=== PATIENT | male | born 1975 | race African-American/Black ===

== ENCOUNTER 2017-09-09 08:15 | Inpatient (IN) | payer BC, OTHER ==
[2017-09-09 09:29] LABS: Urine Appearance Clear; Urine Blood 1+ (Negative); Urine Color Yellow; Urine Ketones Negative (Negative); Urine Protein 2+(100 mg/dL) (Negative); Urine Specific Gravity 1.023 (1.010-1.030); Urine Urobilinogen Negative (Negative)
[2017-09-09 10:29] LABS: ABS Basophils 0.1 10^3/ul (0-0.2); ABS Eosinophils 0 10^3/ul (0-0.6); ABS Lymphocytes 2.2 10^3/ul (1.0-4.8); ABS Monocytes 0.4 10^3/ul (0-0.8); ABS Neutrophils 2.4 10^3/ul (1.5-7.7); ABS Nucleated RBC 0 10^3/ul; Eosinophil % 0.6 % (0-6); Hematocrit 41 % (42-52); Hemoglobin 13.8 g/dl (14.0-18.0); Lymphocyte % 43.3 % (25-47); Mean Corpuscular HGB Conc 33 g/dl (31-36); Mean Corpuscular Hemoglobin 31 pg (27-31); Mean Corpuscular Volume 93 fL (80-94); Mean Platelet Volume 7 um3 (7.4-10.4); Nucleated Red Blood Cells % 0.1; Platelet Count 190 10^3/ul (150-450); Red Blood Count 4.42 10^6/ul (4.0-5.4); Red Cell Distribution Width 14 % (10.5-15); White Blood Count 5.1 10^3/ul (3.5-10.8)
[2017-09-09] MEDS ORDERED: Pantoprazole IV* 40 MG IV ONE ×2 (10:33→14:23)
[2017-09-09 10:46] LABS: INR 0.78 (0.77-1.02)
[2017-09-09 10:51] LABS: EGFR Non-African American 76.3 (>60)
[2017-09-09] MEDS ORDERED: Iohexol 300* (CONTRAST) 10 ML SDV IV ONE (12:21)
--- NOTE | 2017-09-09 13:31 | RAD ---
INDICATION: Diffuse abdominal pain evaluate for appendicitis and diverticulitis. COMPARISON: Comparison is made with a prior CT of the abdomen and pelvis from November 07, 2014. TECHNIQUE: A CT scan of the abdomen and pelvis was performed with intravenous and oral contrast following intravenous injection of 100 ml of Omnipaque 300 nonionic contrast. Contiguous axial sections were obtained from the lung bases through the symphysis pubis. Images were reconstructed in the coronal and sagittal planes. FINDINGS: The lung bases are clear. No pleural effusion is present. The liver is mildly enlarged and diffusely decreased in attenuation consistent with fatty infiltration. No calcified gallstones are seen. The spleen and pancreas appear to be within normal limits. The adrenal glands appear to be within normal limits. There are multiple focal right renal areas of cortical thinning and scarring. There is also a 4 mm nonobstructing calculus in the upper pole of the right kidney. No hydronephrosis is present. No significant focal renal abnormality is seen. The aorta is normal in caliber and demonstrates homogeneous contrast opacification. No significant enlarged retroperitoneal lymph nodes are seen. The stomach, small and large bowel appear nondistended. There is a metallic foreign body adjacent to the cecum causing artifact limiting the study. The appendix is partially visualized. The visualized portion appears within normal limits. There are no inflammatory changes noted in the right lower quadrant. There is mild sigmoid diverticulosis. There is no evidence for diverticulitis or colitis. No free intraperitoneal air or fluid is seen. No significant focal osseous abnormality is seen. IMPRESSION: 1. NO EVIDENCE FOR ACUTE FINDING OR CAUSE FOR THE PATIENT'S ABDOMINAL PAIN IS SEEN. 2. RIGHT RENAL CORTICAL SCARRING AND NONOBSTRUCTING RIGHT RENAL CALCULUS. 3. MILD HEPATOMEGALY AND HEPATIC STEATOSIS. 4. METALLIC FOREIGN BODY IN THE RIGHT LOWER QUADRANT RECOMMEND CLINICAL CORRELATION.
--- NOTE | 2017-09-09 14:01 | ED ---
Celso Zuniga Julia, scribed for Maxime Coles on 09/09/17 at 1019 . Abdominal Pain/Male - HPI Summary HPI Summary: This patient is a 42 year old M presenting to [facility] with a chief complaint of diffuse intermitting abdominal pain for the past few days. Patient reports hematemesis today. Patient denies bloody or black stools, and diarrhea. The patient rates the pain 9/10 in severity. Symptoms aggravated by increased alcohol consumption this past week. Patient denies medical history. - History of Current Complaint Chief Complaint: EDAbdPain Stated Complaint: ABD PAIN Time Seen by Provider: 09/09/17 10:17 Hx Obtained From: Patient Onset/Duration: Lasting Days Timing: Intermittent Pain Intensity: 9 Pain Scale Used: 0-10 Numeric Location: Diffuse Aggravating Factor(s): Other: - etoh consumption Associated Signs And Symptoms: Positive: Other - hematemesis. Negative: Blood in Stool, Diarrhea - Allergies/Home Medications Allergies/Adverse Reactions: Allergies Allergy/AdvReac Type Severity Reaction Status Date / Time No Known Allergies Allergy Unknown Verified 09/09/17 09:27 Reaction Details hay fever Allergy Intermediate Congestion Uncoded 02/11/15 10:06 Home Medications: Home Medications predniSONE TAB* [Deltasone TAB*] 5 mg PO DAILY 09/09/17 [History Confirmed 09/09] PMH/Surg Hx/FS Hx/Imm Hx Endocrine/Hematology History: Denies: Hx Diabetes, Hx Thyroid Disease Cardiovascular History: Denies: Hx Hypertension, Hx Pacemaker/ICD Respiratory History: Denies: Hx Asthma, Hx Chronic Obstructive Pulmonary Disease (COPD) GI History: Denies: Hx Ulcer Sensory History: Denies: Hx Hearing Aid Neurological History: Reports: Other Neuro Impairments/Disorders - SYNCOPE / CONCUSSION Psychiatric History: Denies: Hx Panic Disorder - Surgical History Surgery Procedure, Year, and Place: LEFT HAND 2003 Infectious Disease History: No Infectious Disease History: Denies: Hx Clostridium Difficile, Hx Hepatitis, Hx Human Immunodeficiency Virus (HIV), Hx of Known/Suspected MRSA, Hx Shingles, Hx Tuberculosis, Traveled Outside the [place] in Last 30 Days - Family History Known Family History: Positive: Other - pancreatic disease - Social History Alcohol Use: Daily Alcohol Amount: most days "to mask the pain" Substance Use Type: Reports: None Smoking Status (MU): Never Smoked Tobacco Review of Systems Gastrointestinal: Negative - bloody or dark stools Positive: Abdominal Pain, Vomiting - with blood. Negative: Diarrhea Positive: no symptoms reported All Other Systems Reviewed And Are Negative: Yes Physical Exam - Summary Physical Exam Summary: Appearance: Well appearing, no pain distress Skin: warm, dry, reflects adequate perfusion Head/face: normal Eyes: EOMI, ELOY ENT: normal Neck: supple, non-tender Respiratory: CTA, breath sounds present Cardiovascular: RRR, pulses symmetrical Abdomen: diffusely tender, soft Bowel: present Musculoskeletal: normal, strength/ROM intact Neuro: normal, sensory motor intact, A&Ox3 Triage Information Reviewed: Yes Vital Signs On Initial Exam: Initial Vitals Temp Pulse Resp BP Pulse Ox 99.0 F 83 18 207/137 98 09/09/17 08:17 09/09/17 08:17 09/09/17 08:17 09/09/17 08:17 09/09/17 08:17 Vital Signs Reviewed: Yes Diagnostics - Vital Signs Vital Signs Temp Pulse Resp BP Pulse Ox 09/09/17 09:30 82 20 188/118 98 09/09/17 09:00 79 18 165/128 94 09/09/17 08:55 95 12 183/134 96 09/09/17 08:48 89 183/134 97 09/09/17 08:17 99.0 F 83 18 207/137 98 - Laboratory Lab Results: Lab Results 09/09/17 Range/Units 09:04 Urine Color Yellow Urine Appearance Clear Urine pH 6.0 (5-9) Ur Specific [place] 1.023 (1.010-1.030) Urine Protein 2+(100 mg/dl) H (Negative) Urine Ketones Negative (Negative) Urine Blood 1+ H (Negative) Urine Nitrate Negative (Negative) Urine Bilirubin Negative (Negative) Urine Urobilinogen Negative (Negative) Ur Leukocyte Esterase Negative (Negative) Urine WBC (Auto) Trace(0-5/hpf) (Absent) Urine RBC (Auto) Trace(0-2/hpf) (Absent) Ur Squamous Epith Cells Present H (Absent) Urine Bacteria Absent (Absent) Hyaline Casts Present H (Absent) Urine Glucose Negative (Negative) Result Diagrams: 09/09/17 09:10 09/09/17 09:10 Lab Statement: Any lab studies that have been ordered have been reviewed, and results considered in the medical decision making process. - CT A/P CT Interpretation Completed By: Radiologist - 1. NO EVIDENCE FOR ACUTE FINDING OR CAUSE FOR THE PATIENT'S ABDOMINAL PAIN IS SEEN. 2. RIGHT RENAL CORTICAL SCARRING AND NONOBSTRUCTING RIGHT RENAL CALCULUS. 3. MILD HEPATOMEGALY AND HEPATIC STEATOSIS. 4. METALLIC FOREIGN BODY IN THE RIGHT LOWER QUADRANT RECOMMEND CLINICAL CORRELATION. ED Physician has reviewed this report. - EKG 1011 Cardiac Rate: NL - 70 EKG Rhythm: Sinus Rhythm EKG Interpretation: no acute changes Abdominal Pain Fem Course/Dx - Course Course Of Treatment: Patient presents with diffuse intermitting abdominal pain for the past few days. Patient reports hematemesis today. Patient denies bloody or black stools, and diarrhea. Bloodwork reveals a postive Troponin and Lactic Acid. CT A/P reveals a metallic foriegn body in the RLQ. Dr. Daniel will admit this patient. - Diagnoses Differential Diagnosis/HQI/PQRI: ACS, Appendicitis, Diverticulitis, Peptic Ulcer Disease Provider Diagnoses: Foreign body of abdominal wall, Troponin level elevated, Abdominal pain - Provider Notifications Discussed Care Of Patient With: Girish Daniel Time Discussed With Above Provider: 13:38 Instructed by Provider To: Admit As Inpatient Discharge - Discharge Plan Condition: Stable Disposition: ADMITTED TO [facility] Referrals: Lizzette Bishop MD [Primary Care Provider] - The documentation as recorded by the Celso aceves Julia accurately reflects the service I personally performed and the decisions made by Sanket madden Emmanuel.
[2017-09-09] MEDS ORDERED: Thiamine IV 100 MG, Folic Acid IV* 1 MG, Multiple Vitamin IV ADULT* 10 ML in D5NS 0.9% ... IV ONE (14:15)
[2017-09-09] MEDS ORDERED: Acetaminophen TAB* 325 MG PO PRN (14:15)
[2017-09-09] MEDS ORDERED: Ondansetron INJ* 2 MG/ML VIAL IV PRN (14:15)
[2017-09-09] MEDS ORDERED: NS 0.9% 1000 ML* 1,000 ML IV SCH (14:15)
[2017-09-09] MEDS ORDERED: Magnesium Sulfate 2 GM IV* 2 GM/50 ML BAG IVPB ONE (14:25)
[2017-09-09 14:50] LABS: Hematocrit 43 % (42-52); Hemoglobin 14.7 g/dl (14.0-18.0)
[2017-09-09] MEDS: Pantoprazole IV* 80 MG in NS 0.9% 250 ML* 250 ML IVPB SCH (15:24)
[2017-09-09] MEDS: hydrALAZINE IV* 20 MG/ML VIAL IV SLOW PU PRN (15:32)
[2017-09-09] MEDS: Sucralfate TAB* 1 GM PO SCH (15:33)
[2017-09-09] MEDS ORDERED: hydrALAZINE IV* 20 MG/ML VIAL IV SLOW PU ONE (17:57)
[2017-09-09] MEDS: amLODIPine TAB* 5 MG PO SCH (18:20)
[2017-09-09 20:01] LABS: Hematocrit 42 % (42-52)
--- NOTE | 2017-09-09 20:20 | HP ---
CC: Dr. Bishop; Dr. Howard; Dr. Key * HISTORY AND PHYSICAL: DATE OF ADMISSION: 09/09/17 PRIMARY CARE PROVIDER: Dr. Bishop. CONSULTING SURGEON: Dr. Key. CONSULTING FLIGHT SERVICE AGENT: Dr. Arcelia Howard. ATTENDING PROVIDER: Dr. Daniel * (DICTATED BY RANDOLPH LEYVA NP) CHIEF COMPLAINT: 1. Vomiting blood x2. 2. Epigastric pain. 3. Lower abdominal pain. HISTORY OF PRESENT ILLNESS: Mr. Mckenna is a 42-year-old male patient. He has a history of EtOH abuse, CKD, syncope in the past, DTs, and seasonal allergies. He says he typically binge drinks. He says he is a known alcoholic. In the last week, he has been drinking a pint to pint and a half of vodka a day; last drink was yesterday. He says he has been having diarrhea intermittently. He said he started having epigastric discomfort. He was concerned today. He vomited twice and he noticed blood coming up with each vomit, small amount. No coffee-ground emesis and he has not had any more active vomiting here in the ED , but he was concerned because of the pain. His family was concerned because of his increased drinking. There were concerned because of obviously the blood. They came into the hospital. He denied any chest pain. He says that he exercise 4 times a week and he does biking, snowboarding, various activities. He lifts weights and he says he never gets chest pain with this. He denies any chest pain currently. He says the pain was initially in his epigastric area, then it kind of settled in both lower quadrants. He describes it as a dull aching cramp. He denies having any fevers, chills. He had 2 episodes of diarrhea yesterday. No tarry stools were noted and he has not had any bowel movements here in the ED. He was concerned because of the bright red blood in his vomit, came into the ED, was evaluated. It was noted that his troponin was mildly elevated at 0.05. He was also found to have in CT scan a metallic foreign body of unclear etiology, and we were asked to evaluate for admission. PAST MEDICAL HISTORY: Significant for: 1. EtOH abuse. 2. History of DTs. 3. CKD. 4. Syncope. 5. Seasonal allergies. PAST SURGICAL HISTORY: Denied. HOME MEDICATIONS: He is currently on a prednisone taper. The only thing he is taking is prednisone 5 mg daily and he is to be done in 2 days according to the patient. He was taking this for a skin reaction. ALLERGIES TO MEDICATIONS: Include none, but he is allergic to NICKEL. FAMILY HISTORY: He says his mother has pancreatic trouble and also has history of drug abuse. Father's history is unknown. SOCIAL HISTORY: The patient does smoke marijuana occasionally. Denies any cocaine, heroin, crack use, or any other illicit drugs. He says he does binge drink. He says he is a known alcoholic and over the last week, he was drinking a pint to pint and a half of alcohol. He works at [employer]. REVIEW OF SYSTEMS: There is no documented fever. Denied having any significant weight change. There is no double vision. Denies having any ear discharge. No rhinorrhea. No sore throat. No thyroid enlargement. Denies any chest pain. There is no orthopnea, no nocturnal dyspnea. There was abdominal pain with nausea and vomiting from my HPI. No dysuria, no frequency. No seizure, no loss of consciousness. No pruritus and no skin ulcerations. Review of 14 systems completed, all others negative. PHYSICAL EXAMINATION GENERAL: At this time, Mr. Mckenna is a 42-year-old male patient, he is sitting in the ED stretcher. He does not appear to be in any acute distress. VITAL SIGNS: Blood pressure 136/94, pulse 73, respirations 20, O2 sat was 97%, his temperature was 99.0. HEENT: Head is atraumatic. Eyes: EOMs are intact. Sclerae anicteric, were not pale. Throat: Oral mucosa appears to be moist. No oropharyngeal erythema. NECK: Supple. LUNGS: Clear to auscultation. No wheezes, rales, or rhonchi. HEART: Sounds S1 and S2. Regular rate and rhythm. No murmurs, rubs, or gallops. ABDOMEN: Soft, flat. There was no guarding or rebound tenderness. He was a little tender in the right lower quadrant. EXTREMITIES: Pulses were 2+ throughout. He is moving all 4 extremities with 5/ 5 strength. NEUROLOGIC: He is awake, alert, oriented x3. Tongue midline. Solar Resource Assessor were equal. No gross focal deficits. SKIN: Intact. DIAGNOSTIC STUDIES/LAB DATA: WBC 5.1, RBC of 4.42, hemoglobin 13.8, hematocrit of 41, and platelet count of 190. INR 0.78, PTT of 33.2. Sodium 140 , potassium is 3.5, chloride of 104, bicarb 27, BUN 15, creatinine 1.06, glucose 94, lactate 2.1, calcium 9.1, mag 1.8. Total bilirubin 0.5, AST 81, ALT 53, alk phos 41. Troponin 0.05. CRP 1.02. Albumin 4.3. Lipase normal. Urine: 1+ blood, present squamous epithelial cells. The patient did have an abdominal and pelvis CT obtained today, which shows no evidence for acute finding or cause of the patient's abdominal pain is seen. Right renal cortical scarring and nonobstructing right renal calculus. Mild hepatomegaly and hepatic steatosis. Metallic foreign body in the right lower quadrant, recommend clinical correlation. He had an EKG obtained today, which does show a normal sinus rhythm. No ST elevations or T-wave inversions were noted. It was reviewed to the previous EKG , it appears to be similar. Old medical records were reviewed. ASSESSMENT AND PLAN: Mr. Mckenna is a 42-year-old male patient coming into the ED today with complaints of epigastric discomfort, abdominal discomfort, and also vomiting blood. On evaluation, found to have a mildly elevated troponin. We were asked to evaluate for admission. He will be admitted under observation status for: 1. Question of gastrointestinal bleed. At this point, I did place a call to Dr. Howard, who is here to help with management of this. I have placed 2 IVs. I am getting a repeat H and H now. I am also getting Hemoccult for stool. I am also starting him on Protonix drip and Carafate and clear liquid diet for now. I suspect, he probably has gastritis from the steroids, ibuprofen use, in addition to this the alcoholism and we will continue to follow. 2. Foreign body. Again, etiology unclear. The patient has never had any surgeries. He has never had any trauma such as a gunshot wound or stabbing or anything like that, that would correlate with this. To his knowledge, he has not swallowed anything. My plan would be to get GI consult for this and also surgical consult. He is tender in the right lower quadrant, but he does not have an acute abdomen. He is not distended, he is not having any guarding. So , we will continue to follow this. 3. Alcoholism and EtOH abuse. Put Social Work consult, [facility] protocol, and I am also checking an alcohol level. 4. Chronic kidney disease. His creatinine appears to be stable, we will monitor. 5. Elevated troponin. Etiology unclear. He is not having any chest pain whatsoever. He exercises pretty routinely, never has exertional chest pain. I am getting an echo. I am going to trend these and place him on telemetry and follow. In the setting of bleeding, I am holding aspirin. I will trend the troponin. If they continue to elevate, we will get Cardiology consult. 6. Elevated liver function tests. Probably secondary to alcoholism, we will follow. 7. History of delirium tremens. Again, [facility] protocol has been initiated. 8. DVT prophylaxis. SCDs have been ordered. 9. Code status. Full code. 10. Fluids, electrolytes, and nutrition. Clear liquid diet. TIME SPENT: On the admission was 70 minutes, greater than half the time was spent [id number] with the patient obtaining my history of physical; the other half time was spent going over the plan of care with the patient and implementing plan of care. I did discuss the plan of care with my attending, Dr. Daniel; he is in agreement. RANDOLPH LEYVA NP [id number]/[facility] #: [id number] JAKUB
--- NOTE | 2017-09-09 20:36 | CONS ---
CONSULTATION REPORT: DATE OF CONSULT: 09/09/17 REFERRING PROVIDER: Jagdeep Beltran NP, Hospitalist Service. REASON FOR CONSULTATION: Foreign body noted on abdominal CT scan. CHIEF COMPLAINT: Nausea and vomiting with blood streaked vomitus. HISTORY OF PRESENT ILLNESS: Mr. James Mckenna is a 42-year-old gentleman who apparently drank alcohol heavily last night, woke up this morning with generalized abdominal pain and dry heaves. He had multiple episodes of retching and towards the end of his retching episode, he had some blood in the vomitus. This has not occurred since that time and he was concerned, subsequently presented to the emergency room. At that time, he was noted to be hemodynamically stable with a systolic blood pressure over 200. He had apparent complaint of generalized abdominal pain. His laboratory values included a normal white blood count of 5000 with hemoglobin of 13.8. His AST, ALT were mildly elevated and lactic acid of 2.1, but a normal lipase. He also had a troponin of 0.05, which was mildly elevated and possibly felt secondary to the hypertension. Serum alcohol level on presentation today was 331. Because of his abdominal discomfort in addition to the workup as above, he underwent a CAT scan of the abdomen and pelvis. I did review these images with our radiologist here. This shows no evidence of acute finding; however, there appears to be a metallic foreign body, which is adjacent to the cecum or within the cecum of 5 to 6 mm in size causing some artifact as well. The nature of this foreign body was not clear. He gives no history of gunshot wound, stab injury or other penetrating injury to his abdomen or chest. He has had no symptoms and his bowels have been working well. He has had no blood per rectum or melena. Of note, he underwent a CAT scan in 2014, which did not show the foreign body. He denies losing any fillings in his teeth or have any problems with choking or coughing. He does admit, however, to drinking quite heavily over the past week. Of note, his serum alcohol level at 9 o'clock this morning was 331. PAST MEDICAL HISTORY: Hypertension, apparently newly diagnosed. PAST SURGICAL HISTORY: None. MEDICATIONS: Prednisone p.r.n. for a skin rash. ALLERGIES: He has no known drug allergies. SOCIAL HISTORY: Socially, he drinks alcohol, fairly regularly. He does not believe that he has a problem with it, however. He does not use tobacco. He works at the [employer]. REVIEW OF SYSTEMS: Review of systems as per above. PHYSICAL EXAM: He is afebrile. Heart rate is 93. Most recent blood pressure 182/121. General, he is a slender male, in no apparent distress. He is quite alert, conversive, very pleasant. Lungs were clear to auscultation with normal respiratory effort. Heart with regular rhythm without murmurs, rubs or gallops. His abdomen is soft, nondistended. There are no prior surgical incisions. There are no hernias. He has normoactive bowel sounds throughout. He has some mild discomfort throughout without rebound, guarding or peritoneal irritation. There is no localized discomfort. Psychiatrically: He appears to be awake, alert and conversive. He has normal judgment and insight. IMPRESSION: 1. Nausea and vomiting with subsequent hematemesis, which seems to have resolved. He was retching heavily prior to the hematemesis and he drank a large amount of alcohol last night. I suspect this is most likely a Shawna-Newton tear and will be self-limiting. He remains hemodynamically stable and a followup hemoglobin is actually slightly higher than his initial presentation. 2. Metallic foreign body noted on the CT scan in the right lower quadrant. This does not appear to be involved in the appendix and there are no other acute findings in the area. It is difficult to tell whether this is intraluminal or could be extraluminal. He gives no history in the last several years of penetrating injury i.e. gunshot wound or stab wound. I suspect this is an intraluminal foreign body that he inadvertently swallowed and is not the cause of any of his presenting symptoms. PLAN: I would recommend observation with serial plain x-ray in the next 24 to 48 hours to document any movement or change in the location of the foreign body. I suspect this will be passed normally and can be followed up as an outpatient. Certainly, if this is something extraluminal, I think this is an incidental finding and still would not recommend any surgical intervention and especially given the fact it is not causing him any symptoms at this point. Thank you for the consultation. We will follow him closely with you. [id number]/[facility] #: [id number] [facility] SYSTEMOswald
[2017-09-10] MEDS: Pantoprazole IV* 80 MG in NS 0.9% 250 ML* 250 ML IVPB SCH ×2 (02:24→13:06)
[2017-09-10 02:54] LABS: Hematocrit 42 % (42-52); Hemoglobin 13.9 g/dl (14.0-18.0)
[2017-09-10 07:04] LABS: ABS Basophils 0.1 10^3/ul (0-0.2); ABS Eosinophils 0.1 10^3/ul (0-0.6); ABS Lymphocytes 1.6 10^3/ul (1.0-4.8); ABS Monocytes 0.5 10^3/ul (0-0.8); ABS Neutrophils 2.6 10^3/ul (1.5-7.7); ABS Nucleated RBC 0 10^3/ul; Eosinophil % 1.1 % (0-6); Hematocrit 43 % (42-52); Hemoglobin 14.4 g/dl (14.0-18.0); Lymphocyte % 33.3 % (25-47); Mean Corpuscular HGB Conc 34 g/dl (31-36); Mean Corpuscular Hemoglobin 31 pg (27-31); Mean Corpuscular Volume 94 fL (80-94); Mean Platelet Volume 7 um3 (7.4-10.4); Nucleated Red Blood Cells % 0.2; Platelet Count 190 10^3/ul (150-450); Red Blood Count 4.59 10^6/ul (4.0-5.4); Red Cell Distribution Width 14 % (10.5-15); White Blood Count 4.8 10^3/ul (3.5-10.8)
[2017-09-10 07:11] LABS: INR 0.85 (0.77-1.02)
[2017-09-10 07:19] LABS: EGFR Non-African American 85.5 (>60)
--- NOTE | 2017-09-10 07:58 | RAD ---
INDICATION: Bloody emesis COMPARISON: CT abdomen pelvis September 09, 2017 TECHNIQUE: 2 views the abdomen were obtained. FINDINGS: Overlying the right of midline pelvis is a 6 mm hyperdense focus that corresponds to a metallic object seen on the previous CT examination that it appears to be outside the bowel. Oral contrast from the previous CT examination fills the bowel. IMPRESSION: NO RADIOGRAPHICALLY APPARENT ACUTE ABNORMALITIES. A METALLIC FOCUS AT THE RIGHT OF MIDLINE PELVIS COULD REPRESENT SURGICAL MATERIAL OR ANOTHER FOREIGN BODY. THESE CORRESPOND TO THE PATIENT'S MEDICAL HISTORY.
[2017-09-10] MEDS: Folic Acid TAB* 1 MG PO SCH (08:20)
[2017-09-10] MEDS: Thiamine TAB* 100 MG TAB PO SCH (08:20)
[2017-09-10] MEDS: Sucralfate TAB* 1 GM PO SCH ×3 (08:20→16:36)
[2017-09-10] MEDS: amLODIPine TAB* 5 MG PO SCH (08:20)
[2017-09-10] MEDS: Multivitamins/Minerals TAB PO SCH (08:20)
--- NOTE | 2017-09-10 08:45 | PN ---
Progress Note - Progress Note Date of Service: 09/10/17 SOAP: Subjective: Doing well overnight Had a BM and passed flatus, no blood, no further N/V Has an appetite Objective: Temp Pulse Resp BP Pulse Ox 98.6 F 64 16 171/98 100 09/10/17 08:05 09/10/17 08:05 09/10/17 08:05 09/10/17 08:05 09/10/17 08:05 PEX: Comfortable Abd is soft and non-distended. Bowel sounds are present throughout. There is no tenderness, rebound or guarding. Laboratory Results - last 24 hr 09/09/17 09/09/17 09/09/17 09:04 09:10 09:10 WBC RBC Hgb Hct MCV MCH MCHC RDW Plt Count MPV Neut % (Auto) Lymph % (Auto) [place] % (Auto) Eos % (Auto) Baso % (Auto) Absolute Neuts (auto) Absolute Lymphs (auto) Absolute Monos (auto) Absolute Eos (auto) Absolute Basos (auto) Absolute Nucleated RBC Nucleated RBC % INR (Anticoag Therapy) 0.78 APTT 33.2 Sodium 140 Potassium 3.5 Chloride 104 Carbon Dioxide 27 Anion Gap 9 BUN 15 Creatinine 1.06 Est GFR ( Amer) 98.1 Est GFR (Non-Af Amer) 76.3 BUN/Creatinine Ratio 14.2 Glucose 94 Lactic Acid Calcium 9.1 Magnesium 1.8 L Total Bilirubin 0.50 Direct Bilirubin Indirect Bilirubin AST 81 H ALT 53 H Alkaline Phosphatase 41 Troponin I 0.05 H* C-Reactive Protein 1.02 Total Protein 7.6 Albumin 4.3 Globulin 3.3 Albumin/Globulin Ratio 1.3 Lipase 65 Urine Color Yellow Urine Appearance Clear Urine pH 6.0 Ur Specific [place] 1.023 Urine Protein 2+(100 mg/dl) H Urine Ketones Negative Urine Blood 1+ H Urine Nitrate Negative Urine Bilirubin Negative Urine Urobilinogen Negative Ur Leukocyte Esterase Negative Urine WBC (Auto) Trace(0-5/hpf) Urine RBC (Auto) Trace(0-2/hpf) Ur Squamous Epith Cells Present H Urine Bacteria Absent Hyaline Casts Present H Urine Glucose Negative Serum Alcohol 331 H 09/09/17 09/09/17 09/09/17 09:10 10:49 14:40 WBC 5.1 RBC 4.42 Hgb 13.8 L 14.7 Hct 41 L 43 MCV 93 MCH 31 MCHC 33 RDW 14 Plt Count 190 MPV 7 L Neut % (Auto) 47.1 Lymph % (Auto) 43.3 [place] % (Auto) 8.0 Eos % (Auto) 0.6 Baso % (Auto) 1.0 Absolute Neuts (auto) 2.4 Absolute Lymphs (auto) 2.2 Absolute Monos (auto) 0.4 Absolute Eos (auto) 0 Absolute Basos (auto) 0.1 Absolute Nucleated RBC 0 Nucleated RBC % 0.1 INR (Anticoag Therapy) APTT Sodium Potassium Chloride Carbon Dioxide Anion Gap BUN Creatinine Est GFR ( Amer) Est GFR (Non-Af Amer) BUN/Creatinine Ratio Glucose Lactic Acid 2.1 H* Calcium Magnesium Total Bilirubin Direct Bilirubin Indirect Bilirubin AST ALT Alkaline Phosphatase Troponin I C-Reactive Protein Total Protein Albumin Globulin Albumin/Globulin Ratio Lipase Urine Color Urine Appearance Urine pH Ur Specific [place] Urine Protein Urine Ketones Urine Blood Urine Nitrate Urine Bilirubin Urine Urobilinogen Ur Leukocyte Esterase Urine WBC (Auto) Urine RBC (Auto) Ur Squamous Epith Cells Urine Bacteria Hyaline Casts Urine Glucose Serum Alcohol 09/09/17 09/09/17 09/09/17 14:40 17:47 19:49 WBC RBC Hgb 14.0 Hct 42 MCV MCH MCHC RDW Plt Count MPV Neut % (Auto) Lymph % (Auto) [place] % (Auto) Eos % (Auto) Baso % (Auto) Absolute Neuts (auto) Absolute Lymphs (auto) Absolute Monos (auto) Absolute Eos (auto) Absolute Basos (auto) Absolute Nucleated RBC Nucleated RBC % INR (Anticoag Therapy) APTT Sodium Potassium Chloride Carbon Dioxide Anion Gap BUN Creatinine Est GFR ( Amer) Est GFR (Non-Af Amer) BUN/Creatinine Ratio Glucose Lactic Acid Calcium Magnesium Total Bilirubin Direct Bilirubin Indirect Bilirubin AST ALT Alkaline Phosphatase Troponin I 0.05 H* 0.06 H* C-Reactive Protein Total Protein Albumin Globulin Albumin/Globulin Ratio Lipase Urine Color Urine Appearance Urine pH Ur Specific [place] Urine Protein Urine Ketones Urine Blood Urine Nitrate Urine Bilirubin Urine Urobilinogen Ur Leukocyte Esterase Urine WBC (Auto) Urine RBC (Auto) Ur Squamous Epith Cells Urine Bacteria Hyaline Casts Urine Glucose Serum Alcohol 09/09/17 09/09/17 09/10/17 19:50 21:53 02:19 WBC RBC Hgb 13.9 L Hct 42 MCV MCH MCHC RDW Plt Count MPV Neut % (Auto) Lymph % (Auto) [place] % (Auto) Eos % (Auto) Baso % (Auto) Absolute Neuts (auto) Absolute Lymphs (auto) Absolute Monos (auto) Absolute Eos (auto) Absolute Basos (auto) Absolute Nucleated RBC Nucleated RBC % INR (Anticoag Therapy) APTT Sodium Potassium Chloride Carbon Dioxide Anion Gap BUN Creatinine Est GFR ( Amer) Est GFR (Non-Af Amer) BUN/Creatinine Ratio Glucose Lactic Acid 2.0 Calcium Magnesium Total Bilirubin Direct Bilirubin Indirect Bilirubin AST ALT Alkaline Phosphatase Troponin I 0.05 H* C-Reactive Protein Total Protein Albumin Globulin Albumin/Globulin Ratio Lipase Urine Color Urine Appearance Urine pH Ur Specific [place] Urine Protein Urine Ketones Urine Blood Urine Nitrate Urine Bilirubin Urine Urobilinogen Ur Leukocyte Esterase Urine WBC (Auto) Urine RBC (Auto) Ur Squamous Epith Cells Urine Bacteria Hyaline Casts Urine Glucose Serum Alcohol 09/10/17 09/10/17 09/10/17 06:24 06:24 06:24 WBC 4.8 RBC 4.59 Hgb 14.4 Hct 43 MCV 94 MCH 31 MCHC 34 RDW 14 Plt Count 190 MPV 7 L Neut % (Auto) 54.1 Lymph % (Auto) 33.3 [place] % (Auto) 9.6 H Eos % (Auto) 1.1 Baso % (Auto) 1.9 Absolute Neuts (auto) 2.6 Absolute Lymphs (auto) 1.6 Absolute Monos (auto) 0.5 Absolute Eos (auto) 0.1 Absolute Basos (auto) 0.1 Absolute Nucleated RBC 0 Nucleated RBC % 0.2 INR (Anticoag Therapy) 0.85 APTT Sodium 133 Potassium 3.7 Chloride 99 L Carbon Dioxide 25 Anion Gap 9 BUN 8 Creatinine 0.96 Est GFR ( Amer) 109.9 Est GFR (Non-Af Amer) 85.5 BUN/Creatinine Ratio 8.3 Glucose 80 Lactic Acid Calcium 8.7 Magnesium Total Bilirubin 1.00 Direct Bilirubin 0.20 H Indirect Bilirubin 0.8 AST 57 H ALT 47 Alkaline Phosphatase 40 Troponin I C-Reactive Protein Total Protein 7.6 Albumin 4.2 Globulin 3.4 Albumin/Globulin Ratio 1.2 Lipase Urine Color Urine Appearance Urine pH Ur Specific [place] Urine Protein Urine Ketones Urine Blood Urine Nitrate Urine Bilirubin Urine Urobilinogen Ur Leukocyte Esterase Urine WBC (Auto) Urine RBC (Auto) Ur Squamous Epith Cells Urine Bacteria Hyaline Casts Urine Glucose Serum Alcohol AXR reviewed this morning--Foreign body metallic object appears to be in same position--? intraluminal v extraluminal?? Assessment: Abd pain resolved-no further N/V, bleeding Abdominal exam benign No change in location of metallic foreign body- While I do not know nature of foreign body I think this is an incidental finding and while this may be outside the bowel, I do not think there is an indication for exploration/ removal. Plan: Continue observation Start diet as tolerated Follow up in office as outpatient.
[2017-09-10] MEDS: hydrALAZINE IV* 20 MG/ML VIAL IV SLOW PU PRN ×2 (10:42→16:38)
[2017-09-10] MEDS: LORazepam TAB(*) 1 MG PO SCH ×3 (12:50→17:24)
--- NOTE | 2017-09-10 15:03 | ECHO ---
Patient: TOM SAMSON [facility] Rec#: [id number] : 1975 Date: 09/10/2017 Age: 42y Height: 172.7 cm / 68.0 in Weight: 74.8 kg / 164.9 lbs Sex: M BSA: 1.9 Room#: 438 Admit Date#: 09/09/2017 Type: Inpatient Referring: Jagdeep Beltran NP Reading: Brittanie Pyle MD Marine Reporter: Bea Alvarado RN RDCS CC: Lizzette Bishop MD Transthoracic Echocardiogram Indication: Elevated troponin level, syncope BP: 167/103 HR: 63 Rhythm: NSR Findings History: ETOH, chronic renal disease Technical Comments: The study quality is good. Completed at 1150. Left Ventricle: The left ventricular chamber size is normal. Mild concentric left ventricular hypertrophy is observed. There is a prominent septal knuckle. measuring 1.4cm. Global left ventricular wall motion and contractility are within normal limits. There is normal left ventricular systolic function. The estimated ejection fraction is 60-65%. There is no consistent Doppler evidence of clinically significant diastolic dysfunction. Left Atrium: The left atrial chamber size is normal. Right Ventricle: The right ventricular chamber size and systolic function are within normal limits. Right Atrium: The right atrial cavity size is normal. Aortic Valve: The aortic valve is trileaflet. Systolic excursion of the aortic valve is normal. There is no evidence of aortic regurgitation. There is no evidence of aortic stenosis. Mitral Valve: The mitral valve leaflets are mildly thickened. There is a trace of mitral regurgitation. There is no evidence of mitral stenosis. Chordal systolic anterior motion is visualized. Tricuspid Valve: The tricuspid valve leaflets are normal. There is trace tricuspid regurgitation. Unable to estimate the right ventricular systolic pressure. There is no tricuspid stenosis. Pulmonic Valve: The pulmonic valve appears normal. There is trace to mild pulmonic regurgitation. There is no pulmonic stenosis. Pericardium: There is no significant pericardial effusion. Aorta: There is no dilatation of the ascending aorta. There is no dilatation of the aortic arch. The aortic root is normal in size. Pulmonary Artery: The main pulmonary artery appears normal. Venous: The inferior vena cava is not visualized. Conclusions Mild concentric left ventricular hypertrophy is observed. Global left ventricular wall motion and contractility are within normal limits. The estimated ejection fraction is 60-65%. The right ventricular chamber size and systolic function are within normal limits. All valves show good excursion and function. There is a trace of mitral regurgitation. There is trace tricuspid regurgitation. Compared with prior echo of 11/08/14, EF previously 55-60%, valve function is stable. Measurements Name Value Normal Range RVDdMajor (2D) 3 cm (2.2 - 4.4) RAd ISD 4CH 4.6 cm (3.4 - 4.9) RA (A4C)W 3.9 cm (2.9 - 4.6) IVSd (2D) 1.1 cm (0.6 - 1) LVPWd (2D) 1.2 cm (0.6 - 1) LVIDd (2D) 4.9 cm (3.6 - 5.4) LVIDs (2D) 2.9 cm - LV FS (2D) 41 % (25 - 45) Aortic Annulus 2 cm (1.4 - 2.6) Ao root diameter (2D) 2.6 cm (2.1 - 3.5) Ascending Ao 3.1 cm (2.1 - 3.4) Aortic arch 2.1 cm (1.8 - 3.4) LA dimension (AP) 2D 3.7 cm (2.3 - 3.8) LAd ISD 4CH 4.9 cm (2.9 - 5.3) LA ISD 4CH W 3.8 cm (2.5 - 4.5) Name Value Normal Range LA ESV SP 4CH (A/L) 59 ml - LA ESV SP 2CH (A/L) 63 ml - LA ESV BP (A/L) 62 ml - LA ESV BP (A/L) index 33 ml/m2 - LA ESV SP 4CH (MOD) 50 ml - LA ESV SP 2CH (MOD) 61 ml - Name Value Normal Range MV E-wave Vmax 0.6 m/sec - MV deceleration time 253 msec - MV A-wave Vmax 0.7 m/sec - MV E:A ratio 0.9 ratio - LV septal e' Vmax 0.07 m/sec - LV lateral e' Vmax 0.13 m/sec - LV E:e' septal ratio 8.6 ratio - LV E:e' lateral ratio 4.6 ratio - Name Value Normal Range AV Vmax 1.8 m/sec - AV VTI 33.1 cm - AV peak gradient 13.5 mmHg - AV mean gradient 7 mmHg - LVOT Vmax 1.6 m/sec - LVOT VTI 30 cm - LVOT peak gradient 10 mmHg - LVOT mean gradient 5.3 mmHg - JANELLE Vmax 1.2 m/sec - Name Value Normal Range PV Vmax 1.1 m/sec -
[2017-09-10] MEDS: Lisinopril TAB* 5 MG PO SCH (15:15)
--- NOTE | 2017-09-10 17:01 | PN ---
Subjective Date of Service: 09/10/17 Interval History: Worsening tachycardia, tremors, hypertension, RESTREPO. WAM to 12, got 4mg, 4mg and 3mg ativan. No vomiting of blood. Was not interested in rehab, seeking to use his girlfriend and family as support. no chest pain or SOB ECHO okay. lisinopril 5mg and amlodipine 5mg added hydralazine prns needed. Objective Active Medications: Acetaminophen (Tylenol Tab*) 650 mg PO Q4H PRN PRN Reason: PAIN Last Admin: 09/09/17 22:16 Dose: 650 mg Amlodipine Besylate (Norvasc Tab*) 10 mg PO DAILY [facility] Last Admin: 09/10/17 08:20 Dose: 10 mg Folic Acid (Folvite Tab*) 1 mg PO DAILY [facility] Last Admin: 09/10/17 08:20 Dose: 1 mg Hydralazine HCl (Apresoline Iv*) 5 mg IV SLOW PU Q6H PRN PRN Reason: BLOOD PRESSURE Last Admin: 09/10/17 16:38 Dose: 5 mg Sodium Chloride (Ns 0.9% 1000 Ml*) 1,000 mls @ 100 mls/hr IV PER RATE [facility] Last Admin: 09/09/17 18:22 Dose: 100 mls/hr Lisinopril (Prinivil Tab*) 5 mg PO DAILY [facility] Last Admin: 09/10/17 15:15 Dose: 5 mg Lorazepam (Ativan Tab(*)) 0 - 6 mg PO .PER [facility] PROTOCOL [facility] PRN Reason: Protocol Last Admin: 09/10/17 15:15 Dose: 4 mg Multivitamins/Minerals (Theragran/Minerals Tab*) 1 tab PO DAILY [facility] Last Admin: 09/10/17 08:20 Dose: 1 tab Ondansetron HCl (Zofran Inj*) 4 mg IV Q6H PRN PRN Reason: NAUSEA Pantoprazole Sodium (Protonix Tab (Nf)) 40 mg PO DAILY [facility] Sucralfate (Carafate*) 1 gm PO AC [facility] Last Admin: 09/10/17 16:36 Dose: 1 gm Thiamine HCl (Vitamin B-1 Tab*) 100 mg PO DAILY [facility] Last Admin: 09/10/17 08:20 Dose: 100 mg Vital Signs - 8 hr 09/10/17 09/10/17 09/10/17 10:35 11:59 12:50 Temperature 98.6 F 98.4 F Pulse Rate 81 110 Respiratory 16 20 20 Rate Blood Pressure 186/90 171/104 (mmHg) O2 Sat by Pulse 100 99 Oximetry 09/10/17 09/10/17 09/10/17 14:00 14:05 15:00 Temperature 98.8 F 98.8 F Pulse Rate 99 108 104 Respiratory 20 21 Rate Blood Pressure 161/102 199/105 180/120 (mmHg) O2 Sat by Pulse 99 99 Oximetry 09/10/17 09/10/17 15:15 16:06 Temperature Pulse Rate Respiratory 21 21 Rate Blood Pressure (mmHg) O2 Sat by Pulse Oximetry Oxygen Devices in Use Now: None Appearance: NAD, slightly tremulous. Eyes: No Scleral Icterus, PERRLA Respiratory: Symmetrical Chest Expansion and Respiratory Effort, Clear to Auscultation Cardiovascular: NL Sounds; No Murmurs; No JVD, No Edema Abdominal: NL Sounds; No Tenderness; No Distention Extremities: No Edema, No Clubbing, Cyanosis Skin: No Rash or Ulcers, No Nodules or Sclerosis Neurological: Alert and Oriented x 3, NL Sensation, NL Gait, - - tremulous with outstretched hands. Nutrition: Taking PO's Result Diagrams: 09/10/17 06:24 09/10/17 06:24 Additional Lab and Data: Laboratory Results - last 24 hr 09/09/17 09/10/17 09/10/17 21:53 02:19 06:24 WBC 4.8 RBC 4.59 Hgb 13.9 L 14.4 Hct 42 43 MCV 94 MCH 31 MCHC 34 RDW 14 Plt Count 190 MPV 7 L Neut % (Auto) 54.1 Lymph % (Auto) 33.3 [place] % (Auto) 9.6 H Eos % (Auto) 1.1 Baso % (Auto) 1.9 Absolute Neuts (auto) 2.6 Absolute Lymphs (auto) 1.6 Absolute Monos (auto) 0.5 Absolute Eos (auto) 0.1 Absolute Basos (auto) 0.1 Absolute Nucleated RBC 0 Nucleated RBC % 0.2 INR (Anticoag Therapy) Sodium Potassium Chloride Carbon Dioxide Anion Gap BUN Creatinine Est GFR ( Amer) Est GFR (Non-Af Amer) BUN/Creatinine Ratio Glucose Calcium Total Bilirubin Direct Bilirubin Indirect Bilirubin AST ALT Alkaline Phosphatase Troponin I 0.05 H* Total Protein Albumin Globulin Albumin/Globulin Ratio 09/10/17 09/10/17 06:24 06:24 WBC RBC Hgb Hct MCV MCH MCHC RDW Plt Count MPV Neut % (Auto) Lymph % (Auto) [place] % (Auto) Eos % (Auto) Baso % (Auto) Absolute Neuts (auto) Absolute Lymphs (auto) Absolute Monos (auto) Absolute Eos (auto) Absolute Basos (auto) Absolute Nucleated RBC Nucleated RBC % INR (Anticoag Therapy) 0.85 Sodium 133 Potassium 3.7 Chloride 99 L Carbon Dioxide 25 Anion Gap 9 BUN 8 Creatinine 0.96 Est GFR ( Amer) 109.9 Est GFR (Non-Af Amer) 85.5 BUN/Creatinine Ratio 8.3 Glucose 80 Calcium 8.7 Total Bilirubin 1.00 Direct Bilirubin 0.20 H Indirect Bilirubin 0.8 AST 57 H ALT 47 Alkaline Phosphatase 40 Troponin I Total Protein 7.6 Albumin 4.2 Globulin 3.4 Albumin/Globulin Ratio 1.2 Microbiology and Other Data: Microbiology 09/10/17 08:30 Stool Stool Occult Blood (HAROON) - Final Assess/Plan/Problems-Billing Assessment: 42 yo male self professed EtOH abuse (1.5 pint vodka daily last week, hx of DTs ) p/w hematemesis likely 2/2 brody newton tear. Hgb stable. bleeding resolved. Alcohol withdrawl and hypertensive. - Patient Problems (1) ETOH abuse Current Visit: No Status: Chronic Priority: Medium Code(s): F10.10 - ALCOHOL ABUSE, UNCOMPLICATED SNOMED Code(s): 45662104 Comment: folate thiamine ativan prn and WAM protocol. consider librium tomorrow. does not want rehab currently but readdress tomorrow. Last drink Thursday PM. Hx of DT (2) Brody-Newton tear Current Visit: Yes Status: Acute Code(s): K22.6 - GASTRO-ESOPHAGEAL LACERATION-HEMORRHAGE SYNDROME SNOMED Code(s): 813158851 Comment: bleeding resolved. switch from protonix gtt to 40mg daily hgb stable. (3) Hypertension Current Visit: Yes Status: Acute Code(s): I10 - ESSENTIAL (PRIMARY) HYPERTENSION SNOMED Code(s): 59674674 Comment: lisinopril 5 amlodipine 5 hydralazine prn. (4) Elevated troponin Current Visit: Yes Status: Acute Code(s): R74.8 - ABNORMAL LEVELS OF OTHER SERUM ENZYMES SNOMED Code(s): 677677813 Comment: peak 0.06. ECHO w/o wma. denies chest pain/sob. Status and Disposition: medicine, change to inpatient given uncontrolled BP, HR and active withdrawals.
[2017-09-11] MEDS: Thiamine TAB* 100 MG TAB PO SCH (08:58)
[2017-09-11] MEDS: Sucralfate TAB* 1 GM PO SCH ×3 (08:58→16:29)
[2017-09-11] MEDS: Folic Acid TAB* 1 MG PO SCH (08:58)
[2017-09-11] MEDS: amLODIPine TAB* 5 MG PO SCH (08:58)
[2017-09-11] MEDS: Lisinopril TAB* 5 MG PO SCH (08:58)
[2017-09-11] MEDS: Multivitamins/Minerals TAB PO SCH (08:59)
[2017-09-11] MEDS ORDERED: chlordiazePOXIDE CAP* 25 MG PO SCH (11:00)
[2017-09-11] MEDS ORDERED: LORazepam INJ* 2 MG/ML 1 ML VIAL IV PUSH PRN (16:03)
[2017-09-11] MEDS: chlordiazePOXIDE CAP* 25 MG PO SCH ×2 (16:28→23:07)
[2017-09-11] MEDS: Pantoprazole TAB (NF) 40 MG TAB PO SCH (18:00)
--- NOTE | 2017-09-11 20:23 | PN ---
Subjective Interval History: HR intermittently into 120-140s, sinus tach, krupa with ambulation complaint of RESTREPO (though better than yesterday), anxious, tearful. perspiration lower face. diarrhea. tremulous. scheduled librium started. felt better after first dose. ativan later (per RN [place] assessment had not been scoring enough). Pt almost fell when getting up to bathroom. when walked in terry HR up to 170- 180s. no blood or N/V Objective Active Medications: Acetaminophen (Tylenol Tab*) 650 mg PO Q4H PRN PRN Reason: PAIN Last Admin: 09/09/17 22:16 Dose: 650 mg Amlodipine Besylate (Norvasc Tab*) 10 mg PO DAILY [facility] Last Admin: 09/11/17 08:58 Dose: 10 mg Chlordiazepoxide (Librium Cap*) 25 mg PO Q6H [facility] Last Admin: 09/11/17 16:28 Dose: 25 mg Folic Acid (Folvite Tab*) 1 mg PO DAILY [facility] Last Admin: 09/11/17 08:58 Dose: 1 mg Hydralazine HCl (Apresoline Iv*) 5 mg IV SLOW PU Q6H PRN PRN Reason: BLOOD PRESSURE Last Admin: 09/10/17 16:38 Dose: 5 mg Sodium Chloride (Ns 0.9% 1000 Ml*) 1,000 mls @ 100 mls/hr IV PER RATE [facility] Last Admin: 09/09/17 18:22 Dose: 100 mls/hr Lisinopril (Prinivil Tab*) 5 mg PO DAILY [facility] Last Admin: 09/11/17 08:58 Dose: 5 mg Lorazepam (Ativan Tab(*)) 0 - 6 mg PO .PER [place] PROTOCOL [facility] PRN Reason: Protocol Last Admin: 09/10/17 17:24 Dose: 3 mg Lorazepam (Ativan Inj*) 2 mg IV PUSH Q6H PRN PRN Reason: ANXIETY Last Admin: 09/11/17 16:29 Dose: 2 mg Multivitamins/Minerals (Theragran/Minerals Tab*) 1 tab PO DAILY [facility] Last Admin: 09/11/17 08:59 Dose: 1 tab Ondansetron HCl (Zofran Inj*) 4 mg IV Q6H PRN PRN Reason: NAUSEA Pantoprazole Sodium (Protonix Tab (Nf)) 40 mg PO DAILY [facility] Last Admin: 09/11/17 18:00 Dose: 40 mg Sucralfate (Carafate*) 1 gm PO AC [facility] Last Admin: 09/11/17 16:29 Dose: 1 gm Thiamine HCl (Vitamin B-1 Tab*) 100 mg PO DAILY [facility] Last Admin: 09/11/17 08:58 Dose: 100 mg Vital Signs - 8 hr 09/11/17 09/11/17 09/11/17 13:00 13:03 15:00 Temperature 98.4 F Pulse Rate 93 Respiratory 16 18 16 Rate Blood Pressure 144/96 (mmHg) O2 Sat by Pulse 98 Oximetry 09/11/17 09/11/17 09/11/17 15:05 16:28 16:29 Temperature 99.0 F Pulse Rate 90 Respiratory 16 18 18 Rate Blood Pressure 140/91 (mmHg) O2 Sat by Pulse 98 Oximetry 09/11/17 09/11/17 09/11/17 17:00 17:16 17:58 Temperature 98.3 F Pulse Rate 93 Respiratory 16 16 16 Rate Blood Pressure 145/112 (mmHg) O2 Sat by Pulse 99 Oximetry Oxygen Devices in Use Now: None Appearance: Anxious, tearful, tremulous Eyes: No Scleral Icterus, PERRLA Ears/Nose/Mouth/Throat: NL Teeth, Lips, Gums Neck: NL Appearance and Movements; NL JVP Respiratory: Symmetrical Chest Expansion and Respiratory Effort, Clear to Auscultation Cardiovascular: NL Sounds; No Murmurs; No JVD, RRR, - - HR 80-90s Abdominal: NL Sounds; No Tenderness; No Distention, No Hepatosplenomegaly Extremities: No Edema, No Clubbing, Cyanosis Skin: No Rash or Ulcers Neurological: Alert and Oriented x 3, NL Sensation, - - intermittently unsteady on feet. Nutrition: Taking PO's Result Diagrams: 09/10/17 06:24 09/10/17 06:24 Microbiology and Other Data: Microbiology 09/10/17 08:30 Stool Stool Occult Blood (HAROON) - Final Assess/Plan/Problems-Billing Assessment: 42 yo male self professed EtOH abuse (1.5 pint vodka daily last week, hx of DTs ) p/w hematemesis likely 2/2 brody newton tear. Hgb stable. bleeding resolved. Alcohol withdrawl and hypertensive. - Patient Problems (1) ETOH abuse Current Visit: No Status: Chronic Priority: Medium Code(s): F10.10 - ALCOHOL ABUSE, UNCOMPLICATED SNOMED Code(s): 14572178 Comment: ativan prn and WAM protocol. started scheduled librium. taper as able. does not want inpatient rehab currently but readdress daily. given list of outpatient resources by CM/SW Last drink Thursday PM. Hx of DT folate thiamine (2) Brody-Newton tear Current Visit: Yes Status: Acute Code(s): K22.6 - GASTRO-ESOPHAGEAL LACERATION-HEMORRHAGE SYNDROME SNOMED Code(s): 275569894 Comment: bleeding resolved. protonix 40mg daily hgb stable. (3) Hypertension Current Visit: Yes Status: Acute Code(s): I10 - ESSENTIAL (PRIMARY) HYPERTENSION SNOMED Code(s): 46832054 Comment: lisinopril 5 amlodipine 5 much improved. was on no meds as outpatient though told high BPs in past. hydralazine prn. (4) Elevated troponin Current Visit: Yes Status: Acute Code(s): R74.8 - ABNORMAL LEVELS OF OTHER SERUM ENZYMES SNOMED Code(s): 998106312 Comment: peak 0.06. ECHO w/o wma. denies chest pain/sob. Status and Disposition: medicin inpatient given active withdrawals and HR to 180s with ambulation.
[2017-09-12] MEDS: chlordiazePOXIDE CAP* 25 MG PO SCH ×2 (05:41→10:24)
[2017-09-12] MEDS: Multivitamins/Minerals TAB PO SCH (09:12)
[2017-09-12] MEDS: Sucralfate TAB* 1 GM PO SCH ×2 (09:12→11:31)
[2017-09-12] MEDS: amLODIPine TAB* 5 MG PO SCH (09:13)
[2017-09-12] MEDS: Pantoprazole TAB (NF) 40 MG TAB PO SCH (09:13)
[2017-09-12] MEDS: Folic Acid TAB* 1 MG PO SCH (09:14)
[2017-09-12] MEDS: Lisinopril TAB* 5 MG PO SCH (09:14)
[2017-09-12] MEDS: Thiamine TAB* 100 MG TAB PO SCH (09:14)
[2017-09-12] MEDS: NS 0.9% 1000 ML* 2,000 ML IV ONE ×2 (10:25→11:32)
[2017-09-12 10:41] LABS: ABS Basophils 0.1 10^3/ul (0-0.2); ABS Eosinophils 0.1 10^3/ul (0-0.6); ABS Lymphocytes 1.3 10^3/ul (1.0-4.8); ABS Monocytes 0.6 10^3/ul (0-0.8); ABS Neutrophils 2.7 10^3/ul (1.5-7.7); ABS Nucleated RBC 0 10^3/ul; Eosinophil % 2.1 % (0-6); Hematocrit 45 % (42-52); Lymphocyte % 26.8 % (25-47); Mean Corpuscular HGB Conc 33 g/dl (31-36); Mean Corpuscular Hemoglobin 31 pg (27-31); Mean Corpuscular Volume 95 fL (80-94); Mean Platelet Volume 7 um3 (7.4-10.4); Nucleated Red Blood Cells % 0; Platelet Count 183 10^3/ul (150-450); Red Blood Count 4.77 10^6/ul (4.0-5.4); Red Cell Distribution Width 13 % (10.5-15); White Blood Count 4.7 10^3/ul (3.5-10.8)
[2017-09-12 15:48] VITALS: BP 154/113
--- NOTE | 2017-09-13 08:03 | DS ---
CC: Dr. Bishop; Dr. Key * DISCHARGE/LEAVING AGAINST MEDICAL ADVICE SUMMARY: DATE OF ADMISSION: DATE OF AMA: 09/12/17 PRIMARY CARE PHYSICIAN: Dr. Bishop. PRIMARY DIAGNOSES: 1. Suspected Shawna-Newton tear. 2. Alcohol abuse with alcohol withdrawal. 3. Tachycardia. SECONDARY DIAGNOSES: Include: 1. Foreign body noted on imaging. 2. Elevated troponin. 3. Hypertension. MEDICATIONS ON DISCHARGE: 1. Librium 25 mg daily for 4 days. 2. Amlodipine 5 mg daily. New Medications: 1. Thiamine 100 mg daily. 2. Carafate 1 g with meals. 3. Protonix 40 mg daily. 4. Folic acid 1 mg daily. 5. Acetaminophen 650 mg every 4 hours as needed for pain. Please do not take this medication if continues to consume alcohol. PERTINENT IMAGING STUDIES: CT abdomen and pelvis, impression: No evidence for acute finding or cause for patient's abdominal pain. Right renal cortical scarring and nonobstructive right renal calculus. Mild hepatomegaly and hepatic steatosis. Metallic foreign body in the right lower quadrant, recommend clinical correlation. CONSULTATIONS OBTAINED DURING HOSPITAL STAY: Include Gastroenterology as well as Surgery. HISTORY OF PRESENT ILLNESS AND HOSPITAL COURSE: This is a 42-year-old man with history of alcohol abuse complicated by delirium tremens, presented to the hospital with hematemesis thought secondary to a Shawna-Newton tear. His hospital stay was complicated by withdrawal requiring Ativan and then placed on Librium prior to his discharge. His hospital stay was additionally complicated by hypertension, systolics in the 190s. The patient was prepared to go home; however, the day prior, he was noted to have tachycardia to rates of 180 when ambulating, resting heart rate was between 70s and 90s. Additionally, on the day of discharge/AMA, the patient's resting heart rates were between 70s and 90s. However, when ambulated slowly around the terry, his heart rate increased to 140 to 150, noted to be sinus tachycardia on telemetry without any clear transition to SVT. he still appears dehydrated. He received 2 L of normal saline bolus prior to his ambulation and a decrease in tachycardia was noted from 180s to 140s to 150s. I recommended that this patient stay hospitalized for continued monitoring, therapy, and IV hydration; however, the patient was anxious to leave the hospital. He is adamant that he is not going to drinking. I indicated my concern that he could suffer a myocardial infarction or other severe morbidity including stroke, loss of consciousness, inability to breathe or . At this point, the patient is no longer scoring on the WAM protocol, has no significant signs of withdrawal other than the tachycardia with ambulation. He understands our conversation as well as the risks and benefits of staying and leaving the hospital. I believe he has capacity to make this decision. However, unfortunately, he is opting to leave the hospital. I discussed the new medications with the patient. He will pick them up at [facility]. He indicates he will return to the hospital with worrisome symptoms which would include palpitations, chest pain, shortness of breath, nausea, vomiting, lightheadedness, loss of consciousness or near loss of consciousness. TIME SPENT: Greater than 60 minutes were spent on discharge of this patient, greater than half was spent [id number] with the patient. [id number]/[facility] #: [id number] JAKUB
== END 2017-09-12 16:16 | disposition left against medical advice (07) | DRG 242 ==
LOC: ED 08:15 → MEDTELE 13:52 → OBSVTOIN 09-10 22:11
PROVIDERS: ADMIT Internal Medicine; ATTEND Internal Medicine
DX: K22.6 Gastro-esophageal laceration-hemorrhage syndrome (principal); F10.239 Alcohol dependence with withdrawal, unspecified; K76.0 Fatty (change of) liver, not elsewhere classified; R00.0 Tachycardia, unspecified; R74.8 Abnormal levels of other serum enzymes; I12.9 Hypertensive chronic kidney disease with stage 1 through stage 4 chronic kidney disease, or unspecified chronic kidney disease; N18.9 Chronic kidney disease, unspecified; F12.90 Cannabis use, unspecified, uncomplicated; R79.89 Other specified abnormal findings of blood chemistry; Y90.8 Blood alcohol level of 240 mg/100 ml or more; N20.0 Calculus of kidney; Z88.8 Allergy status to other drugs, medicaments and biological substances; Z83.79 Family history of other diseases of the digestive system; Z18.10 Retained metal fragments, unspecified
CPT/HCPCS: 36415; 74018; 74177; 80048; 80053; 80076; 80320; 81003; 81015; 82272; 83605; 83690; 83735; 84484; 85014; 85018; 85025; 85610; 85730; 86140; 93005; 93306; 99284; A9270-GY; G0378; G0480; J0360; J2060; J3411; J3475; Q9967

== ENCOUNTER 2017-09-29 17:46 | Emergency (ER) | payer BC ==
--- NOTE | 2017-09-29 19:32 | RAD ---
INDICATION: Fall, altered mental status, head injury. COMPARISON: There are no prior studies available for comparison. TECHNIQUE: Contiguous axial sections of the brain were obtained from the skull base to the vertex without contrast. FINDINGS: The ventricles, cisterns and sulci are within normal limits. There is a small 3 mm area of increased density present in the deep white matter in the posterior right frontal lobe likely secondary to calcification less likely a small area of hemorrhage. This is best seen on image number 10. No other focal abnormality or mass effect are seen. No significant focal osseous abnormality is seen. The visualized portion of the paranasal sinuses and mastoid air cells appear clear. IMPRESSION: SMALL 3 MM AREA OF INCREASED DENSITY IN THE POSTERIOR RIGHT FRONTAL LOBE LIKELY RESENTING A SMALL AREA OF CALCIFICATION LESS LIKELY HEMORRHAGE. MR IMAGING WITHOUT CONTRAST MAY BE HELPFUL IN FURTHER EVALUATION.
--- NOTE | 2017-09-29 19:36 | RAD ---
INDICATION: Right shoulder injury. TECHNIQUE: 4 views of the right shoulder were obtained. FINDINGS: The bones are in normal alignment. There are 2 small calcific densities which project adjacent to the inferior aspect of the glenoid process of the scapula possibly representing old fracture fragments or loose bodies. No acute fracture is seen. There is mild osteoarthritic change in the glenohumeral joint. IMPRESSION: 1. NO EVIDENCE FOR ACUTE FRACTURE. 2. SMALL CALCIFIC DENSITIES ADJACENT TO THE INFERIOR GLENOID PROCESS OF THE SCAPULA POSSIBLY REPRESENTING OLD FRACTURE FRAGMENTS OR LOOSE BODIES.
[2017-09-30 09:02] VITALS: BP 170/87
--- NOTE | 2017-10-02 17:52 | ED ---
Tim Zuniga Angela, scribed for Germain Sullivan MD on 09/30/17 at 0728 . Progress - Progress Note Progress Note: This pt was signed out by Dr. Shelton, pending disposition, awaiting alcohol metabolism. On re-evaluation pt is sleeping comfortably and is stable. On second re-evaluation, pt is awake and is requesting discharge. He called his mother to pick him up. Pt will be discharged to home with his mother. He ambulated out of the emergency room without any difficulty. Pt will be discharged home, in stable condition, with a diagnosis of alcohol intoxication. Condition: Stable Disposition: Home Re-Evaluation - Re-Evaluation First Eval Re-Evaluation Time: 07:17 Change: Improved Comment: Pt is sleeping comfortable and is hemodynamically stable. Second Eval Re-Evaluation Time: 08:38 Change: Improved Comment: Pt is awake and is requesting discharge. Course/Dx - Diagnoses Provider Diagnoses: Alcohol intoxication The documentation as recorded by the Tim aceves Angela accurately reflects the service I personally performed and the decisions made by , Germain Sullivan MD.
--- NOTE | 2017-10-10 14:10 | ED ---
Manohar Zuniga Gabriel, scribed for Jaime Nelson MD on 09/29/17 at 1842 . Adult Trauma - HPI Summary HPI Summary: This patient is a 42 year old M presenting to [facility] s/p fall. Pt was intoxicated at work and his friends called his family didnt want to come in the so police brought him in. The patient rates the pain 6/10 in severity. Symptoms aggravated by movement of the arm. Patient reports RESTREPO, contusion above the right eye, and right shoulder pain. Patient denies LOC. Pt does not drink at work usually. He is clearly drunk in the ED and does not want a work up. - History of Current Complaint Chief Complaint: EDSubstanceAbuse Stated Complaint: 2208 Time Seen by Provider: 09/29/17 18:12 Hx Obtained From: Patient Mechanism of Injury: Fall Loss of Consciousness: no loss of consciousness Onset/Duration: Still Present Pain Intensity: 6 Pain Scale Used: 0-10 Numeric Location: Head, Other - shoulder Associated Signs & Symptoms: Positive: Other: - RESTREPO, contusion above the right eye, and right shoulder pain.. Negative: Loss of Consciousness - Allergy/Home Medications Home Medications: Home Medications Acetaminophen TAB* [Tylenol TAB*] 650 mg PO Q4H PRN 09/29/17 [History Confirmed 09/29/17] Folic Acid TAB* [Folvite TAB*] 1 mg PO DAILY 09/29/17 [History Confirmed ] Pantoprazole TAB (NF) [Protonix TAB (NF)] 40 mg PO DAILY 09/29/17 [History Confirmed 09/29/17] Sucralfate TAB* [Carafate*] 1 gm PO AC 09/29/17 [History Confirmed 09/29/17] Thiamine TAB* [Vitamin B-1 TAB*] 100 mg PO DAILY 09/29/17 [History Confirmed ] amLODIPine TAB* [Norvasc 5 mg TAB*] 5 mg PO DAILY 09/29/17 [History Confirmed ] PMH/Surg Hx/FS Hx/Imm Hx Endocrine/Hematology History: Denies: Hx Blood Disorders, Hx Blood Transfusions, Hx Bone Marrow Disease Cardiovascular History: Denies: Hx Aneurysm, Hx Angina, Hx Angioplasty Respiratory History: Denies: Hx Bronchopulmonary Dysplasia, Hx Chronic Bronchitis History: Denies: Hx Benign Prostatic Hyperplasia Infectious Disease History: No Infectious Disease History: Denies: Traveled Outside the [place] in Last 30 Days - Family History Known Family History: Positive: Hypertension - Social History Occupation: Employed Full-time Alcohol Use: Daily Hx Substance Use: No Substance Use Type: Reports: None Hx Tobacco Use: Yes Smoking Status (MU): Never Smoked Tobacco Type: Smokeless Tobacco Review of Systems Negative: Fever, Chills Negative: Sore Throat Negative: Chest Pain Negative: Shortness Of Breath, Cough Negative: Abdominal Pain, Vomiting, Nausea Negative: dysuria, hematuria Positive: Other - left shoulder pain . Negative: Edema Positive: Other - contusion above the right eye. Negative: Rash Neurological: Negative - dizziness Positive: Headache All Other Systems Reviewed And Are Negative: Yes Physical Exam - Summary Physical Exam Summary: Constitutional: Well-developed, Well-nourished, Alert, Cooperative Skin: Warm, Dry HENT: Normocephalic; No Racoons eyes; No ruiz's sign; No abrasion; No contusion; No hemotympanum; No maxilla facial tenderness or instability; Dentition are smooth; No dental trauma; No trismus. .5cm abrasion over the right eyebrow with hematoma. Eyes: EOM normal, PERRL Neck: Trachea is midline. No stridor; No JVD; No step off; No posterior cervical spine tenderness Cardio: Rhythm regular, rate normal Heart sounds normal; Intact distal pulses; The pedal pulses are 2+ and symmetric. Radial pulses are 2+ and symmetric. Pulmonary/Chest wall: Effort normal; Breath sounds normal; Equal chest rise; No flail segment; No rib tenderness; No sternal tenderness Abd: Soft, Appearance normal. No distension; No tenderness; No palpable pulsatile mass; No Cullens sign; No Yousif-Turners sign Musculoskeletal: Full ROM and no tenderness at hips, ankles, shoulders, elbows and knees; No joint swelling; No vertebral body tenderness; No paraspinal tenderness; No step off or deformity of the spine; Pelvis is stable to lateral compression and rock, TTP to the lateral third of the clavicle Neuro: Alert, Oriented x3, Strength 5/5 all extremities, slurred speech Psych: Mood and affect Normal GCS 15 Triage Information Reviewed: Yes Vital Signs On Initial Exam: Initial Vitals Temp Pulse Resp BP Pulse Ox 98.5 F 112 20 181/126 100 09/29/17 17:49 09/29/17 17:49 09/29/17 17:49 09/29/17 17:49 09/29/17 17:49 Vital Signs Reviewed: Yes Diagnostics - Vital Signs Vital Signs Temp Pulse Resp BP Pulse Ox 09/29/17 17:49 98.5 F 112 20 181/126 100 - Laboratory Lab Results: Lab Results 09/29/17 Range/Units 18:52 Serum Alcohol 461 H* (<10) mg/dL Lab Statement: Any lab studies that have been ordered have been reviewed, and results considered in the medical decision making process. - Radiology Shoulder Xray Radiology Interpretation Completed By: Radiologist - 1. NO EVIDENCE FOR ACUTE FRACTURE. 2. SMALL CALCIFIC DENSITIES ADJACENT TO THE INFERIOR GLENOID PROCESS OF THE SCAPULA POSSIBLY REPRESENTING OLD FRACTURE FRAGMENTS OR LOOSE BODIES. ED physician has reviewed this radiology report. - CT CT brain CT Interpretation Completed By: Radiologist - SMALL 3 MM AREA OF INCREASED DENSITY IN THE POSTERIOR RIGHT FRONTAL LOBE LIKELY RESENTING A SMALL AREA OF CALCIFICATION LESS LIKELY HEMORRHAGE. MR IMAGING WITHOUT CONTRAST MAY BE HELPFUL IN FURTHER EVALUATION. ED physician has reviewed this radiology report. Adult Trauma Course/Dx - Course Assessment/Plan: This patient is a 42 year old M presenting to [facility] s/p fall. Pt was intoxicated at work and his friends called his family didnt want to come in the so police brought him in. The patient rates the pain 6/10 in severity. Symptoms aggravated by movement of the arm. Patient reports RESTREPO, contusion above the right eye, and right shoulder pain. Patient denies LOC. Pt does not drink at work usually. He is clearly drunk in the ED and does not want a work up. CT Brain reveals, per radiologist, SMALL 3 MM AREA OF INCREASED DENSITY IN THE POSTERIOR RIGHT FRONTAL LOBE. LIKELY RESENTING A SMALL AREA OF CALCIFICATION LESS LIKELY HEMORRHAGE. MR IMAGING WITHOUT. CONTRAST MAY BE HELPFUL IN FURTHER EVALUATION. Shoulder XR reveals, per radiologist, 1. NO EVIDENCE FOR ACUTE FRACTURE. 2. SMALL CALCIFIC DENSITIES ADJACENT TO THE INFERIOR GLENOID PROCESS OF THE SCAPULA. POSSIBLY REPRESENTING OLD FRACTURE FRAGMENTS OR LOOSE BODIES. Test results show a serum alcohol of 461. The patient will be signed out to Dr. Shelton awaiting detox. - Diagnoses Provider Diagnoses: Alcohol intoxication Discharge - Sign-Out/Discharge Documenting (check all that apply): Sign-Out Patient Signing out patient TO: Shayy Shelton - Discharge Plan Condition: Fair Disposition: OTHER Discharge Disposition Comment: The pt is signed out to Dr. Shelton. Patient Education Materials: Alcohol Intoxication (ED) Referrals: Lizzette Bishop MD [Primary Care Provider] - 3 Days Additional Instructions: Please follow up with your primary care provider. RETURN TO THE ED FOR ANY WORSENING SYMPTOMS. - Billing Disposition and Condition Condition: FAIR Disposition: OTHER The documentation as recorded by the Manohar aceves Gabriel accurately reflects the service I personally performed and the decisions made by me, Jaime Nelson MD.
== END 2017-09-30 09:08 ==
LOC: ED 17:46 → MERGE 17:46 → ED 09-30 09:08
DX: S00.11XA Contusion of right eyelid and periocular area, initial encounter (principal); R51 Headache; F10.129 Alcohol abuse with intoxication, unspecified; W19.XXXA Unspecified fall, initial encounter; Y92.9 Unspecified place or not applicable; Y90.8 Blood alcohol level of 240 mg/100 ml or more; M25.511 Pain in right shoulder
CPT/HCPCS: 36415; 70450; 80320; 93005; 99284; G0480

== ENCOUNTER 2017-10-30 09:20 | Emergency (ER) | payer BC ==
[2017-10-30 15:41] VITALS: BP 138/105
--- NOTE | 2017-10-30 20:31 | ED ---
Nadia Zuniga Thomas, scribed for Frantz Gonzalez MD on 10/30/17 at 1046 . Substance Abuse/Use - HPI Summary HPI Summary: The patient is a 42 year old male requesting alcohol detox. His last drink was a couple shots of vodka today. He denies recent trauma. He denies taking any other drugs. He is a patient at [facility]. - History Of Current Complaint Chief Complaint: EDSubstanceAbuse Stated Complaint: DETOX Time Seen by Provider: 10/30/17 10:26 Hx Obtained From: Patient Ingestion History: Type/Name Of Drug - ETOH Overdose Characteristics: Oral Timing Of Abuse: Daily Severity Currently: Moderate Aggravating Factor(s): Nothing Alleviating Factor(s): Nothing - Allergies/Home Medications Allergies/Adverse Reactions: Allergies Allergy/AdvReac Type Severity Reaction Status Date / Time No Known Allergies Allergy Unknown Verified 10/30/17 09:23 Reaction Details hay fever Allergy Intermediate Congestion Uncoded 10/30/17 09:23 PMH/Surg Hx/FS Hx/Imm Hx Endocrine/Hematology History: Denies: Hx Blood Disorders, Hx Blood Transfusions, Hx Bone Marrow Disease, Hx Diabetes, Hx Thyroid Disease Cardiovascular History: Denies: Hx Aneurysm, Hx Angina, Hx Angioplasty, Hx Hypertension, Hx Pacemaker /ICD Respiratory History: Denies: Hx Asthma, Hx Bronchopulmonary Dysplasia, Hx Chronic Bronchitis, Hx Chronic Obstructive Pulmonary Disease (COPD) GI History: Denies: Hx Ulcer History: Denies: Hx Benign Prostatic Hyperplasia Sensory History: Denies: Hx Contacts or Glasses, Hx Hearing Aid Opthamlomology History: Denies: Hx Contacts or Glasses Neurological History: Reports: Other Neuro Impairments/Disorders - SYNCOPE / CONCUSSION Psychiatric History: Denies: Hx Panic Disorder - Surgical History Surgery Procedure, Year, and Place: LEFT HAND 2003 Infectious Disease History: No Infectious Disease History: Denies: Hx Clostridium Difficile, Hx Hepatitis, Hx Human Immunodeficiency Virus (HIV), Hx of Known/Suspected MRSA, Hx Shingles, Hx Tuberculosis, Traveled Outside the [place] in Last 30 Days - Family History Known Family History: Positive: Hypertension, Other - pancreatic disease - Social History Alcohol Use: Daily Alcohol Amount: 3 pints of vodka daily Hx Substance Use: No Substance Use Type: Reports: None Hx Tobacco Use: Yes Smoking Status (MU): Never Smoked Tobacco Type: Smokeless Tobacco Review of Systems Negative: Fever Negative: Epistaxis All Other Systems Reviewed And Are Negative: Yes Physical Exam - Summary Physical Exam Summary: Appearance: The patient is well-nourished in no acute distress and in no acute pain. Skin: The skin is warm and dry and skin color reflects adequate perfusion. HEENT: The head is normocephalic and atraumatic. The pupils are equal and reactive. The conjunctivae are clear and without drainage. Nares are patent and without drainage. Mouth reveals moist mucous membranes and the throat is without erythema and exudate. The external ears are intact. The ear canals are patent and without drainage. The tympanic membranes are intact. Neck: the neck is supple with full range of motion and non-tender. There are no carotid bruits. There is no neck vein distension. Respiratory: Chest is non-tender. Lungs are clear to auscultation and breath sounds are symmetrical and equal. Cardiovascular: Heart is regular rate and rhythm. There is no murmur or rub auscultated. There is no peripheral edema and pulses are symmetrical and equal. Abdomen: The abdomen is soft and non-tender. There are normal bowel sounds heard in all four quadrants and there is no organomegaly palpated. Musculoskeletal: There is no back tenderness noted. Extremities are non-tender with full range of motion. There is good capillary refill. There is no peripheral edema or calf tenderness elicited. Neurological: Patient is alert and oriented to person, place and time. The patient has symmetrical motor strength in all four extremities. Cranial nerves are grossly intact. Deep tendon reflexes are symmetrical and equal in all four extremities. Psychiatric: The patient has an appropriate affect and does not exhibit any anxiety or depression. Triage Information Reviewed: Yes Vital Signs On Initial Exam: Initial Vitals Temp Pulse Resp BP Pulse Ox 98 F 87 16 131/91 96 10/30/17 09:23 10/30/17 09:23 10/30/17 09:23 10/30/17 09:23 10/30/17 09:23 Vital Signs Reviewed: Yes Diagnostics - Vital Signs Vital Signs Temp Pulse Resp BP Pulse Ox 10/30/17 10:30 31 129/92 10/30/17 10:00 88 20 114/72 91 10/30/17 09:37 83 125/80 88 10/30/17 09:23 98 F 87 16 131/91 96 - Laboratory Lab Statement: Any lab studies that have been ordered have been reviewed, and results considered in the medical decision making process. Course/Dx - Course Course Of Treatment: Mr. Mckenna presented a bit intoxicated and slept here for awhile. He woke up and was clinically sober and remained cooperative. He didn' t exhibit any withdrawal symptoms or signs and I explained to him that we could only admit him for medical withdrawal. - Diagnoses Provider Diagnoses: Alcohol intoxication Discharge - Sign-Out/Discharge Documenting (check all that apply): Discharge - Discharge Plan Condition: Stable Disposition: HOME Patient Education Materials: Alcohol Intoxication (ED) Referrals: [facility] [Outside] - 11/03/17 Additional Instructions: Follow up at [facility] on 11/03/17. - Billing Disposition and Condition Condition: STABLE Disposition: HOME The documentation as recorded by the Nadia aceves Thomas accurately reflects the service I personally performed and the decisions made by me, Frantz Gonzalez MD.
== END 2017-10-30 15:40 | disposition home or self-care (01) ==
LOC: ED 09:20
DX: F10.129 Alcohol abuse with intoxication, unspecified (principal)
CPT/HCPCS: 99282

== ENCOUNTER 2017-11-04 13:44 | Inpatient (IN) | payer BC ==
[2017-11-04] MEDS ORDERED: LORazepam INJ* 2 MG/ML 1 ML VIAL IV ONE (15:11)
[2017-11-04 16:16] LABS: ABS Basophils 0 10^3/ul (0-0.2); ABS Eosinophils 0 10^3/ul (0-0.6); ABS Monocytes 0.3 10^3/ul (0-0.8); ABS Neutrophils 2.9 10^3/ul (1.5-7.7); ABS Nucleated RBC 0 10^3/ul; Eosinophil % 0.2 % (0-6); Hematocrit 41 % (42-52); Hemoglobin 13.8 g/dl (14.0-18.0); Lymphocyte % 23.7 % (25-47); Mean Corpuscular HGB Conc 34 g/dl (31-36); Mean Corpuscular Hemoglobin 30 pg (27-31); Mean Corpuscular Volume 89 fL (80-94); Nucleated Red Blood Cells % 0; Platelet Count 164 10^3/ul (150-450); Red Blood Count 4.57 10^6/ul (4.0-5.4); Red Cell Distribution Width 13 % (10.5-15); White Blood Count 4.3 10^3/ul (3.5-10.8)
--- NOTE | 2017-11-04 16:19 | RAD ---
INDICATION: Diffuse abdominal pain. COMPARISON: Comparison is made with a prior CT of the abdomen and pelvis from September 09, 2017. TECHNIQUE: A CT scan of the abdomen and pelvis was performed without intravenous or oral contrast. Contiguous axial sections were obtained from the lung bases through the symphysis pubis. Images were reconstructed in the coronal and sagittal planes. FINDINGS: The lung bases are clear. No pleural effusion is present. The liver is mildly enlarged and decreased in attenuation consistent with fatty infiltration. No focal abnormality is seen on this noncontrast study. No calcified gallstones are noted. The spleen and pancreas appear to be within normal limits. The adrenal glands appear within normal limits. The right kidney is slightly small in size with focal areas of cortical thinning most consistent with scarring. There is a small 3 mm calculus in the upper pole of the right kidney. No hydronephrosis is seen. No ureteral or bladder calculi are noted. The aorta is normal in caliber without significant calcific plaque. No significant enlarged retroperitoneal lymph nodes are seen. The stomach, small and large bowel appear nondistended. The appendix is not well visualized. There are few scattered diverticuli within the colon. There is no evidence for diverticulitis. The metallic density noted in the right lower quadrant on the prior study is no longer visualized. No free intraperitoneal air or fluid is seen. No significant focal osseous abnormality is seen. IMPRESSION: 1. NO EVIDENCE FOR ACUTE FINDING OR CAUSE FOR THE PATIENT'S ABDOMINAL PAIN IS SEEN. 2. MILD HEPATOMEGALY AND HEPATIC STEATOSIS. 3. SMALL NONOBSTRUCTING RIGHT RENAL CALCULUS AND RIGHT RENAL SCARRING IS NOTED.
[2017-11-04 16:27] LABS: Urine Appearance Clear; Urine Blood Negative (Negative); Urine Color Yellow; Urine Ketones Negative (Negative); Urine Protein 1+(30 mg/dL) (Negative); Urine Specific Gravity 1.016 (1.010-1.030); Urine Urobilinogen Negative (Negative)
[2017-11-04 16:30] LABS: INR 0.84 (0.77-1.02)
[2017-11-04 16:36] LABS: EGFR Non-African American 66.1 (>60)
[2017-11-04] MEDS ORDERED: Thiamine IV* 100 MG/ML 2 ML VIAL IM ONE (17:45)
[2017-11-04] MEDS ORDERED: Al Hydrox/Mg Hydrox/Simet LIQ* 30 ML UDC PO PRN (17:46)
[2017-11-04] MEDS ORDERED: Ondansetron INJ* 2 MG/ML VIAL IV PRN (17:46)
[2017-11-04] MEDS ORDERED: Magnesium Sulfate 2 GM IV* 2 GM/50 ML BAG IVPB ONE (18:02)
[2017-11-04] MEDS: NS 0.9% 1000 ML* 1,000 ML IV SCH (19:35)
[2017-11-04] MEDS: LORazepam TAB(*) 1 MG PO SCH ×2 (20:03→22:07)
[2017-11-04] MEDS: Docusate CAP* 100 MG PO SCH (20:03)
--- NOTE | 2017-11-04 20:09 | ED ---
Manohar Zuniga Gabriel, scribed for Douglas Vallejo MD on 11/04/17 at 1530 . Substance Abuse/Use - HPI Summary HPI Summary: This patient is a 42 year old presenting to [facility] with a chief complaint of alcohol withdrawal that began today. Patient reports RESTREPO, diaphoresis, chills, body shakes, and depression. Pts last drink was yesterday and he drinks vodka daily. He also requests a MHE. - History Of Current Complaint Chief Complaint: EDGeneral Stated Complaint: ALC. WITHDRAW Hx Obtained From: Patient Onset/Duration of Drug/ETOH Abuse: Years Ingestion History: Type/Name Of Drug - etoh Overdose Characteristics: Oral Timing Of Abuse: Daily Severity Initially: Moderate Severity Currently: Moderate Character: Depressed Associated Signs And Symptoms: Other: - RESTREPO, diaphoresis, chills, body shakes, and depression - Allergies/Home Medications Allergies/Adverse Reactions: Allergies Allergy/AdvReac Type Severity Reaction Status Date / Time No Known Allergies Allergy Unknown Verified 11/04/17 14:32 Reaction Details hay fever Allergy Intermediate Congestion Uncoded 11/04/17 14:32 PMH/Surg Hx/FS Hx/Imm Hx Endocrine/Hematology History: Denies: Hx Blood Disorders, Hx Blood Transfusions, Hx Bone Marrow Disease, Hx Diabetes, Hx Thyroid Disease Cardiovascular History: Denies: Hx Aneurysm, Hx Angina, Hx Angioplasty, Hx Hypertension, Hx Pacemaker /ICD Respiratory History: Denies: Hx Asthma, Hx Bronchopulmonary Dysplasia, Hx Chronic Bronchitis, Hx Chronic Obstructive Pulmonary Disease (COPD) GI History: Reports: Hx Gastroesophageal Reflux Disease Denies: Hx Ulcer History: Denies: Hx Benign Prostatic Hyperplasia Sensory History: Denies: Hx Contacts or Glasses, Hx Hearing Aid Opthamlomology History: Denies: Hx Contacts or Glasses Neurological History: Reports: Other Neuro Impairments/Disorders - SYNCOPE / CONCUSSION Psychiatric History: Reports: Hx Substance Abuse Denies: Hx Panic Disorder - Surgical History Surgery Procedure, Year, and Place: LEFT HAND 2003 Infectious Disease History: No Infectious Disease History: Denies: Hx Clostridium Difficile, Hx Hepatitis, Hx Human Immunodeficiency Virus (HIV), Hx of Known/Suspected MRSA, Hx Shingles, Hx Tuberculosis, Traveled Outside the [place] in Last 30 Days - Family History Known Family History: Positive: Hypertension, Other - pancreatic disease - Social History Alcohol Use: Daily Alcohol Amount: 3 pints of vodka daily Hx Substance Use: No Substance Use Type: Reports: None Hx Tobacco Use: Yes Smoking Status (MU): Never Smoked Tobacco Type: Smokeless Tobacco Review of Systems Positive: Chills, Skin Diaphoresis Positive: Other - tremors Positive: Headache Positive: Depressed All Other Systems Reviewed And Are Negative: Yes Physical Exam - Summary Physical Exam Summary: General: well-appearing, mild pain distress Skin: warm, color reflects adequate perfusion, dry Head: normal Eyes: EOMI, ELOY ENT: normal Neck: supple, nontender Respiratory: CTA, breath sounds present Cardiovascular: RRR Abdomen: mild diffuse ABD tenderness Bowel: present Musculoskeletal: tremors, strength/ROM intact Neurological: normal, sensory/motor intact, A&O x3 Psychological: affect/mood appropriate Triage Information Reviewed: Yes Vital Signs On Initial Exam: Initial Vitals Temp Pulse Resp BP Pulse Ox 98.5 F 82 18 155/110 96 11/04/17 14:17 11/04/17 14:17 11/04/17 14:17 11/04/17 14:17 11/04/17 14:17 Vital Signs Reviewed: Yes Diagnostics - Vital Signs Vital Signs Temp Pulse Resp BP Pulse Ox 11/04/17 14:17 98.5 F 82 18 155/110 96 - Laboratory Lab Results: Lab Results 11/04/17 11/04/17 11/04/17 Range/Units 15:24 15:24 15:24 WBC 4.3 (3.5-10.8) 10^3/ul RBC 4.57 (4.0-5.4) 10^6/ul Hgb 13.8 L (14.0-18.0) g/dl Hct 41 L (42-52) % MCV 89 (80-94) fL MCH 30 (27-31) pg MCHC 34 (31-36) g/dl RDW 13 (10.5-15) % Plt Count 164 (150-450) 10^3/ul MPV 7.0 L (7.4-10.4) um3 Neut % (Auto) 67.4 (38-83) % Lymph % (Auto) 23.7 L (25-47) % Barron % (Auto) 7.9 H (0-7) % Eos % (Auto) 0.2 (0-6) % Baso % (Auto) 0.8 (0-2) % Absolute Neuts (auto) 2.9 (1.5-7.7) 10^3/ul Absolute Lymphs (auto) 1.0 (1.0-4.8) 10^3/ul Absolute Monos (auto) 0.3 (0-0.8) 10^3/ul Absolute Eos (auto) 0 (0-0.6) 10^3/ul Absolute Basos (auto) 0 (0-0.2) 10^3/ul Absolute Nucleated RBC 0 10^3/ul Nucleated RBC % 0 INR (Anticoag Therapy) (0.77-1.02) APTT (26.0-36.3) seconds Sodium 137 L (139-145) mmol/L Potassium 3.6 (3.5-5.0) mmol/L Chloride 99 L (101-111) mmol/L Carbon Dioxide 27 (22-32) mmol/L Anion Gap 11 (2-11) mmol/L BUN 14 (6-24) mg/dL Creatinine 1.20 H (0.67-1.17) mg/dL Est GFR ( Amer) 85.0 (>60) Est GFR (Non-Af Amer) 66.1 (>60) BUN/Creatinine Ratio 11.7 (8-20) Glucose 91 (70-100) mg/dL Lactic Acid 1.3 (0.5-2.0) mmol/L Calcium 9.6 (8.6-10.3) mg/dL Magnesium 1.5 L (1.9-2.7) mg/dL Total Bilirubin 1.00 (0.2-1.0) mg/dL AST 34 (13-39) U/L ALT 21 (7-52) U/L Alkaline Phosphatase 41 (34-104) U/L Total Creatine Kinase 371 H (10-223) U/L CK-MB (CK-2) 2.7 (0.6-6.3) ng/mL Troponin I 0.04 H* (<0.04) ng/mL Total Protein 7.9 (6.4-8.9) g/dL Albumin 4.5 (3.2-5.2) g/dL Globulin 3.4 (2-4) g/dL Albumin/Globulin Ratio 1.3 (1-3) TSH 2.05 (0.34-5.60) mcIU/mL Urine Color Urine Appearance Urine pH (5-9) Ur Specific [place] (1.010-1.030) Urine Protein (Negative) Urine Ketones (Negative) Urine Blood (Negative) Urine Nitrate (Negative) Urine Bilirubin (Negative) Urine Urobilinogen (Negative) Ur Leukocyte Esterase (Negative) Urine WBC (Auto) (Absent) Urine RBC (Auto) (Absent) Ur Squamous Epith Cells (Absent) Urine Bacteria (Absent) Urine Glucose (Negative) Salicylates < 2.50 (<30) mg/dL Urine Opiates Screen (None Detect) Acetaminophen < 15 mcg/mL Ur Barbiturates Screen (None Detect) Ur Phencyclidine Scrn (None Detect) Ur Amphetamines Screen (None Detect) U Benzodiazepines Scrn (None Detect) Urine Cocaine Screen (None Detect) U Cannabinoids Screen (None Detect) Serum Alcohol < 10 (<10) mg/dL 11/04/17 11/04/17 11/04/17 Range/Units 15:24 15:24 15:24 WBC (3.5-10.8) 10^3/ul RBC (4.0-5.4) 10^6/ul Hgb (14.0-18.0) g/dl Hct (42-52) % MCV (80-94) fL MCH (27-31) pg MCHC (31-36) g/dl RDW (10.5-15) % Plt Count (150-450) 10^3/ul MPV (7.4-10.4) um3 Neut % (Auto) (38-83) % Lymph % (Auto) (25-47) % Barron % (Auto) (0-7) % Eos % (Auto) (0-6) % Baso % (Auto) (0-2) % Absolute Neuts (auto) (1.5-7.7) 10^3/ul Absolute Lymphs (auto) (1.0-4.8) 10^3/ul Absolute Monos (auto) (0-0.8) 10^3/ul Absolute Eos (auto) (0-0.6) 10^3/ul Absolute Basos (auto) (0-0.2) 10^3/ul Absolute Nucleated RBC 10^3/ul Nucleated RBC % INR (Anticoag Therapy) 0.84 (0.77-1.02) APTT 30.3 (26.0-36.3) seconds Sodium (139-145) mmol/L Potassium (3.5-5.0) mmol/L Chloride (101-111) mmol/L Carbon Dioxide (22-32) mmol/L Anion Gap (2-11) mmol/L BUN (6-24) mg/dL Creatinine (0.67-1.17) mg/dL Est GFR ( Amer) (>60) Est GFR (Non-Af Amer) (>60) BUN/Creatinine Ratio (8-20) Glucose (70-100) mg/dL Lactic Acid (0.5-2.0) mmol/L Calcium (8.6-10.3) mg/dL Magnesium (1.9-2.7) mg/dL Total Bilirubin (0.2-1.0) mg/dL AST (13-39) U/L ALT (7-52) U/L Alkaline Phosphatase (34-104) U/L Total Creatine Kinase (10-223) U/L CK-MB (CK-2) (0.6-6.3) ng/mL Troponin I (<0.04) ng/mL Total Protein (6.4-8.9) g/dL Albumin (3.2-5.2) g/dL Globulin (2-4) g/dL Albumin/Globulin Ratio (1-3) TSH (0.34-5.60) mcIU/mL Urine Color Yellow Urine Appearance Clear Urine pH 9.0 (5-9) Ur Specific [place] 1.016 (1.010-1.030) Urine Protein 1+(30 mg/dl) A (Negative) Urine Ketones Negative (Negative) Urine Blood Negative (Negative) Urine Nitrate Negative (Negative) Urine Bilirubin Negative (Negative) Urine Urobilinogen Negative (Negative) Ur Leukocyte Esterase Negative (Negative) Urine WBC (Auto) Absent (Absent) Urine RBC (Auto) Trace(0-2/hpf) (Absent) Ur Squamous Epith Cells Present A (Absent) Urine Bacteria Absent (Absent) Urine Glucose Negative (Negative) Salicylates (<30) mg/dL Urine Opiates Screen None detected (None Detect) Acetaminophen mcg/mL Ur Barbiturates Screen None detected (None Detect) Ur Phencyclidine Scrn None detected (None Detect) Ur Amphetamines Screen None detected (None Detect) U Benzodiazepines Scrn None detected (None Detect) Urine Cocaine Screen None detected (None Detect) U Cannabinoids Screen None detected (None Detect) Serum Alcohol (<10) mg/dL Result Diagrams: 11/04/17 15:24 11/04/17 15:24 Lab Statement: Any lab studies that have been ordered have been reviewed, and results considered in the medical decision making process. - CT CT Abdomen/Pelvis CT Interpretation: No Acute Changes - IMPRESSION: 1. NO EVIDENCE FOR ACUTE FINDING OR CAUSE FOR THE PATIENT'S ABDOMINAL PAIN IS SEEN. 2. MILD HEPATOMEGALY AND HEPATIC STEATOSIS. 3. SMALL NONOBSTRUCTING RIGHT RENAL CALCULUS AND RIGHT RENAL SCARRING IS NOTED. Dr. Vallejo has reviewed this report. CT Interpretation Completed By: Radiologist Course/Dx - Course Course Of Treatment: ADMIT HOSPITALIST. CRITICAL CARE TIME LESS THAN 30 MINUTES. - Diagnoses Provider Diagnoses: Alcohol withdrawal, Elevated troponin - Physician Notifications Discussed Care Of Patient With: Nadine Pedroza Time Discussed With Above Provider: 17:15 Instructed by Provider To: Admit As Inpatient Discharge - Sign-Out/Discharge Documenting (check all that apply): Discharge - Discharge Plan Condition: Stable Disposition: ADMITTED TO [facility] - Billing Disposition and Condition Condition: STABLE Disposition: [facility]P-[facility] [place] The documentation as recorded by the Manohar aceves Gabriel accurately reflects the service I personally performed and the decisions made by , Douglas Vallejo MD.
--- NOTE | 2017-11-04 20:43 | HP ---
ATTENDING PROVIDER ADDENDUM NOW INCLUDED ON THIS REPORT CC: Dr. Bishop * ADMISSION HISTORY AND PHYSICAL: DATE OF ADMISSION: 11/04/17 ATTENDING HOSPITALIST: Tonja Holly MD * (DICTATED BY MONIQUE NAVARRETE) PRIMARY CARE PROVIDER: Dr. Bishop. CHIEF COMPLAINT: 1. Alcohol abuse and withdrawal symptoms. 2. Suicidal ideation. HISTORY OF PRESENT ILLNESS: Mr. Mckenna is a 42-year-old gentleman with past medical history significant for alcohol abuse and history of DTs who presented to the emergency room earlier this afternoon voluntarily, requesting mental health evaluation and detoxing. The patient had a longstanding history of chronic alcohol abuse, for which he has been admitted in the past due to withdrawal symptoms. He was most recently admitted about a month ago after he had some episodes of hematemesis with epigastric pain related to alcohol abuse. He was eventually discharged in a stable condition and there was no report of an EGD done; however, the patient has been maintained on PPI therapy since discharge. He presented to the emergency room today stating that for the past 2 weeks, he has been drinking on a daily basis approximately 1 L of vodka every day, most recently last night. He got up this morning and felt very shaky and decided to come to the emergency room requesting detox as well as mental health eval. He has been depressed recently and for the past few days has been having some suicidal ideation. He denies any homicidal ideation or any intent to hurt others. He has never had any mental health evaluation done in the past; however, he does note his longstanding history of depression and anxiety. He denied any chest pain, palpitations, shortness of breath, headache, dizziness, or blurred vision. He does admit to associated nausea, but denies any vomiting, hematemesis, melena, or any other associated problems. He was recently started on Norvasc for control of his blood pressure in addition to PPI and Carafate given his history of hematemesis. During his ED visit, he had laboratory workup that revealed hemodynamic stability and we were asked to see the patient for evaluation and to discuss admission for detoxing as well as mental health evaluation. PAST MEDICAL HISTORY: As mentioned above, significant for: 1. EtOH abuse with prior admission with withdrawal symptoms. 2. He also has a history of DTs. 3. Hypertension. 4. Chronic kidney disease. 5. GERD. 6. Syncope. 7. Seasonal allergies. PAST SURGICAL HISTORY: He denied any surgeries in the past. CURRENT MEDICATIONS: His medications at home include: 1. Tylenol 650 mg q.4 to 6 hours as needed for pain. 2. Norvasc 5 mg p.o. daily. 3. Folic acid 1 mg p.o. daily. 4. Protonix 40 mg p.o. daily. 5. Carafate 1 g p.o. 4 times a day. 6. Thiamine. 7. Vitamin B12 100 mg p.o. daily. ALLERGIES: He has no known drug allergies. He reports allergies to NICKEL. FAMILY HISTORY: Significant for mother with history of pancreatic problems related to alcoholism and drug abuse. Also, father's history is unknown since the patient has not seen his father in years. SOCIAL HISTORY: The patient denies cigarette smoking. He used to smoke marijuana in the past, but quit about 2 months ago. He admits to drinking 1 L of vodka daily for the past 2 weeks. He has a history of binge drinking in the past. He works at the [employer] at [employer]. REVIEW OF SYSTEMS: See HPI, otherwise review of 14 systems completed and all other negative. PHYSICAL EXAMINATION GENERAL: He is a pleasant healthy appearing middle-aged gentleman, in no acute distress or discomfort at the time of admission. VITAL SIGNS: Revealed temperature of 98.5, pulse of 70, blood pressure of 172/ 101, respirations of 17, and O2 sat of 99% on room air. HEENT: Head is normocephalic, atraumatic. Sclerae anicteric. PERRLA. EOMs intact. Oropharynx is pink and moist. NECK: Supple. Trachea midline. No cervical adenopathy or thyromegaly. LUNGS: Clear to auscultation bilaterally. There are no rales, wheezes, or rhonchi. HEART: Regular rate and rhythm. Normal S1 and S2 without rubs, murmurs, or gallops. BACK: With normal curvature. No CVA tenderness. ABDOMEN: Soft, nontender, and nondistended. No hernias, masses, or hepatosplenomegaly. There is no guarding, rigidity, or rebound tenderness. Bowel sounds were normoactive in all quadrants. RECTAL: Exam deferred at this time. EXTREMITIES: Without cyanosis, clubbing, or edema. NEUROLOGIC: Grossly intact. Sensation and gross motor was essentially normal. There was no evidence of active tremors or shakes on exam. LABORATORY WORKUP: CBC revealed white count of 4000, hemoglobin 13.8, hematocrit 41, and platelets of 164,000. Chemistry panel with sodium of 137, potassium 3.6, chloride 99, CO2 of 27, BUN 14, and creatinine of 1.2. His lactic acid is 1.3. Magnesium 1.5. Troponin 0.04, appears to be chronic since last visit; however, we will recheck trending troponin during his admission. ACCESSORY DIAGNOSTIC DATA: The patient had a CT scan of the abdomen and pelvis that revealed no evidence for acute finding except for mild hepatosplenomegaly unchanged and a small nonobstructing right renal calculus. IMPRESSION: A 42-year-old gentleman with past medical history significant for alcohol abuse and withdrawal symptoms as well as hypertension and chronic kidney disease who appears to the emergency room this afternoon with complaints of suicidal ideation and request for detoxing with alcohol binge drinking for the past 2 weeks. PLAN AND RECOMMENDATIONS: 1. Alcohol abuse and withdrawal symptoms. The patient will be admitted for observation in the telemetry unit. WAM protocol was ordered and in effect. He appears to be stable at this time and we will monitor him closely for withdrawal symptoms. 2. Anxiety, depression, and suicidal ideation. One-on-one observation orders were discussed and placed. The patient appears to be stable at this time; however, he expressed some suicidal ideation earlier today and for the past few days. Psych eval was requested and we will await recommendation in that regard. 3. Hypertension. We will continue his Norvasc as prescribed. 4. Gastroesophageal reflux disease and history of hematemesis. We will continue his PPI and monitor his H and H closely. He denied any history of hematemesis since admission last month. 5. Nutrition status. We will continue his folic acid and thiamine as per protocol. 6. Hypomagnesemia. We will replace his magnesium. 7. DVT prophylaxis. The patient is a low risk scoring 1 on the DVT scale. We will encourage early ambulation. 8. Code status. The patient is a full code. MONIQUE NAVARRETE ADDENDUM: PRIMARY CARE PROVIDER: Dr. Bishop. HISTORY OF PRESENT ILLNESS: Mr. Mckenna is a 42-year-old male with a past medical history of alcohol abuse, chronic kidney disease that presented to the emergency room with complaints of withdrawal with shaking, weakness and headache. His last drink was yesterday and while being evaluated in the emergency room, the patient also complained of suicidal ideation. He will be admitted to the telemetry floor for further evaluation as he also has borderline elevated troponin. This is likely associated with his CKD but needs to be monitored nonetheless. We are going to treat his withdrawal and when he is medically stable, he will possibly need transfer to the mental health unit for further treatment. In the meantime, he will have one-to-one observation. This case was reviewed and discussed with MONIQUE Navarrete. I am in agreement with his management. TONJA Holly MD [id number]/CPS #: [id number]/CPS #: [id number] JAKUB
--- NOTE | 2017-11-04 21:17 | HP ---
CC: Dr. Bishop ADDENDUM: HISTORY AND PHYSICAL: PRIMARY CARE PROVIDER: Dr. Bishop. HISTORY OF PRESENT ILLNESS: Mr. Mckenna is a 42-year-old male with a past medical history of alcohol abuse, chronic kidney disease that presented to the emergency room with complaints of withdrawal with shaking, weakness and headache. His last drink was yesterday and while being evaluated in the emergency room, the patient also complained of suicidal ideation. He will be admitted to the telemetry floor for further evaluation as he also has borderline elevated troponin. This is likely associated with his CKD but needs to be monitored nonetheless. We are going to treat his withdrawal and when he is medically stable, he will possibly need transfer to the mental health unit for further treatment. In the meantime, he will have one-to-one observation. This case was reviewed and discussed with Rolanda Moreno, physician server service assistant. I am in agreement with his management. [id number]/CPS #: [id number] MTDD
[2017-11-05] MEDS: NS 0.9% 1000 ML* 1,000 ML IV SCH ×3 (04:51→21:37)
[2017-11-05] MEDS: Sucralfate TAB* 1 GM PO SCH ×3 (08:29→16:35)
[2017-11-05] MEDS: Docusate CAP* 100 MG PO SCH ×2 (08:29→19:54)
[2017-11-05] MEDS: Thiamine TAB* 100 MG TAB PO SCH (08:29)
[2017-11-05] MEDS: Multivitamins/Minerals TAB PO SCH (08:29)
[2017-11-05] MEDS: Folic Acid TAB* 1 MG PO SCH (08:30)
[2017-11-05] MEDS: Omeprazole CAP* 20 MG PO SCH (08:30)
[2017-11-05] MEDS: amLODIPine TAB* 5 MG PO SCH (08:30)
[2017-11-05] MEDS: Acetaminophen TAB* 325 MG PO PRN ×2 (09:36→20:18)
[2017-11-05] MEDS: LORazepam TAB(*) 1 MG PO SCH ×4 (10:21→20:19)
--- NOTE | 2017-11-05 11:16 | PN ---
Subjective Date of Service: 11/05/17 Interval History: Patient seen and examined. Still scoring on WAM, 1:1 at bedside. Patient states he does not want to hurt himself today. His plan was to drink antifreeze because he is depressed about his alcoholism. C/O headache and tremors, no chest pain, no SOB, not further complaints. Objective Active Medications: Acetaminophen (Tylenol Tab*) 650 mg PO Q4H PRN PRN Reason: PAIN Last Admin: 11/05/17 09:36 Dose: 650 mg Al Hydrox/Mg Hydrox/Simethicone (Maalox Plus*) 30 ml PO Q6H PRN PRN Reason: INDIGESTION Amlodipine Besylate (Norvasc Tab*) 5 mg PO DAILY [facility] Last Admin: 11/05/17 08:30 Dose: 5 mg Docusate Sodium (Colace Cap*) 100 mg PO BID [facility] Last Admin: 11/05/17 08:29 Dose: 100 mg Folic Acid (Folvite Tab*) 1 mg PO DAILY [facility] Last Admin: 11/05/17 08:30 Dose: 1 mg Sodium Chloride (Ns 0.9% 1000 Ml*) 1,000 mls @ 125 mls/hr IV PER RATE [facility] Last Admin: 11/05/17 04:51 Dose: 125 mls/hr Lorazepam (Ativan Tab(*)) 0 - 6 mg PO .PER [facility] PROTOCOL SOURAV PRN Reason: Protocol Last Admin: 11/05/17 10:21 Dose: 2 mg Multivitamins/Minerals (Theragran/Minerals Tab*) 1 tab PO DAILY [facility] Last Admin: 11/05/17 08:29 Dose: 1 tab Omeprazole (Prilosec Cap*) 20 mg PO DAILY@0730 [facility] Last Admin: 11/05/17 08:30 Dose: 20 mg Ondansetron HCl (Zofran Inj*) 4 mg IV Q4H PRN PRN Reason: NAUSEA/VOMITING Sucralfate (Carafate*) 1 gm PO AC [facility] Last Admin: 11/05/17 08:29 Dose: 1 gm Thiamine HCl (Vitamin B-1 Tab*) 100 mg PO DAILY [facility] Last Admin: 11/05/17 08:29 Dose: 100 mg Vital Signs - 8 hr 04/19/18 04/19/18 04/19/18 04:24 06:56 08:31 Temperature 98.7 F 98.2 F Pulse Rate 64 77 76 Respiratory 16 16 14 Rate Blood Pressure 142/104 153/99 150/97 (mmHg) O2 Sat by Pulse 99 97 97 Oximetry 18 11/05/17 10:16 10:21 Temperature 98.6 F Pulse Rate 77 Respiratory 16 18 Rate Blood Pressure 158/97 (mmHg) O2 Sat by Pulse 99 Oximetry Oxygen Devices in Use Now: None Appearance: Alert, mildy tremulous, NAD Eyes: No Scleral Icterus, PERRLA Ears/Nose/Mouth/Throat: NL Teeth, Lips, Gums, Mucous Membranes Moist Neck: Trachea Midline Respiratory: Symmetrical Chest Expansion and Respiratory Effort, Clear to Auscultation Cardiovascular: NL Sounds; No Murmurs; No JVD, RRR, No Edema Abdominal: NL Sounds; No Tenderness; No Distention Neurological: Alert and Oriented x 3 Nutrition: Taking PO's Result Diagrams: 11/04/17 15:24 11/04/17 15:24 Additional Lab and Data: Lab Results 11/04/17 11/04/17 11/04/17 Range/Units 15:24 15:24 15:24 WBC 4.3 (3.5-10.8) 10^3/ul RBC 4.57 (4.0-5.4) 10^6/ul Hgb 13.8 L (14.0-18.0) g/dl Hct 41 L (42-52) % MCV 89 (80-94) fL MCH 30 (27-31) pg MCHC 34 (31-36) g/dl RDW 13 (10.5-15) % Plt Count 164 (150-450) 10^3/ul MPV 7.0 L (7.4-10.4) um3 Neut % (Auto) 67.4 (38-83) % Lymph % (Auto) 23.7 L (25-47) % [place] % (Auto) 7.9 H (0-7) % Eos % (Auto) 0.2 (0-6) % Baso % (Auto) 0.8 (0-2) % Absolute Neuts (auto) 2.9 (1.5-7.7) 10^3/ul Absolute Lymphs (auto) 1.0 (1.0-4.8) 10^3/ul Absolute Monos (auto) 0.3 (0-0.8) 10^3/ul Absolute Eos (auto) 0 (0-0.6) 10^3/ul Absolute Basos (auto) 0 (0-0.2) 10^3/ul Absolute Nucleated RBC 0 10^3/ul Nucleated RBC % 0 INR (Anticoag Therapy) (0.77-1.02) APTT (26.0-36.3) seconds Sodium 137 L (139-145) mmol/L Potassium 3.6 (3.5-5.0) mmol/L Chloride 99 L (101-111) mmol/L Carbon Dioxide 27 (22-32) mmol/L Anion Gap 11 (2-11) mmol/L BUN 14 (6-24) mg/dL Creatinine 1.20 H (0.67-1.17) mg/dL Est GFR ( Amer) 85.0 (>60) Est GFR (Non-Af Amer) 66.1 (>60) BUN/Creatinine Ratio 11.7 (8-20) Glucose 91 (70-100) mg/dL Lactic Acid 1.3 (0.5-2.0) mmol/L Calcium 9.6 (8.6-10.3) mg/dL Magnesium 1.5 L (1.9-2.7) mg/dL Total Bilirubin 1.00 (0.2-1.0) mg/dL AST 34 (13-39) U/L ALT 21 (7-52) U/L Alkaline Phosphatase 41 (34-104) U/L Total Creatine Kinase 371 H (10-223) U/L CK-MB (CK-2) 2.7 (0.6-6.3) ng/mL Troponin I 0.04 H* (<0.04) ng/mL Total Protein 7.9 (6.4-8.9) g/dL Albumin 4.5 (3.2-5.2) g/dL Globulin 3.4 (2-4) g/dL Albumin/Globulin Ratio 1.3 (1-3) TSH 2.05 (0.34-5.60) mcIU/mL Urine Color Urine Appearance Urine pH (5-9) Ur Specific [place] (1.010-1.030) Urine Protein (Negative) Urine Ketones (Negative) Urine Blood (Negative) Urine Nitrate (Negative) Urine Bilirubin (Negative) Urine Urobilinogen (Negative) Ur Leukocyte Esterase (Negative) Urine WBC (Auto) (Absent) Urine RBC (Auto) (Absent) Ur Squamous Epith Cells (Absent) Urine Bacteria (Absent) Urine Glucose (Negative) Salicylates < 2.50 (<30) mg/dL Urine Opiates Screen (None Detect) Acetaminophen < 15 mcg/mL Ur Barbiturates Screen (None Detect) Ur Phencyclidine Scrn (None Detect) Ur Amphetamines Screen (None Detect) U Benzodiazepines Scrn (None Detect) Urine Cocaine Screen (None Detect) U Cannabinoids Screen (None Detect) Serum Alcohol < 10 (<10) mg/dL 11/04/17 11/04/17 11/04/17 Range/Units 15:24 15:24 15:24 WBC (3.5-10.8) 10^3/ul RBC (4.0-5.4) 10^6/ul Hgb (14.0-18.0) g/dl Hct (42-52) % MCV (80-94) fL MCH (27-31) pg MCHC (31-36) g/dl RDW (10.5-15) % Plt Count (150-450) 10^3/ul MPV (7.4-10.4) um3 Neut % (Auto) (38-83) % Lymph % (Auto) (25-47) % [place] % (Auto) (0-7) % Eos % (Auto) (0-6) % Baso % (Auto) (0-2) % Absolute Neuts (auto) (1.5-7.7) 10^3/ul Absolute Lymphs (auto) (1.0-4.8) 10^3/ul Absolute Monos (auto) (0-0.8) 10^3/ul Absolute Eos (auto) (0-0.6) 10^3/ul Absolute Basos (auto) (0-0.2) 10^3/ul Absolute Nucleated RBC 10^3/ul Nucleated RBC % INR (Anticoag Therapy) 0.84 (0.77-1.02) APTT 30.3 (26.0-36.3) seconds Sodium (139-145) mmol/L Potassium (3.5-5.0) mmol/L Chloride (101-111) mmol/L Carbon Dioxide (22-32) mmol/L Anion Gap (2-11) mmol/L BUN (6-24) mg/dL Creatinine (0.67-1.17) mg/dL Est GFR ( Amer) (>60) Est GFR (Non-Af Amer) (>60) BUN/Creatinine Ratio (8-20) Glucose (70-100) mg/dL Lactic Acid (0.5-2.0) mmol/L Calcium (8.6-10.3) mg/dL Magnesium (1.9-2.7) mg/dL Total Bilirubin (0.2-1.0) mg/dL AST (13-39) U/L ALT (7-52) U/L Alkaline Phosphatase (34-104) U/L Total Creatine Kinase (10-223) U/L CK-MB (CK-2) (0.6-6.3) ng/mL Troponin I (<0.04) ng/mL Total Protein (6.4-8.9) g/dL Albumin (3.2-5.2) g/dL Globulin (2-4) g/dL Albumin/Globulin Ratio (1-3) TSH (0.34-5.60) mcIU/mL Urine Color Yellow Urine Appearance Clear Urine pH 9.0 (5-9) Ur Specific [place] 1.016 (1.010-1.030) Urine Protein 1+(30 mg/dl) A (Negative) Urine Ketones Negative (Negative) Urine Blood Negative (Negative) Urine Nitrate Negative (Negative) Urine Bilirubin Negative (Negative) Urine Urobilinogen Negative (Negative) Ur Leukocyte Esterase Negative (Negative) Urine WBC (Auto) Absent (Absent) Urine RBC (Auto) Trace(0-2/hpf) (Absent) Ur Squamous Epith Cells Present A (Absent) Urine Bacteria Absent (Absent) Urine Glucose Negative (Negative) Salicylates (<30) mg/dL Urine Opiates Screen None detected (None Detect) Acetaminophen mcg/mL Ur Barbiturates Screen None detected (None Detect) Ur Phencyclidine Scrn None detected (None Detect) Ur Amphetamines Screen None detected (None Detect) U Benzodiazepines Scrn None detected (None Detect) Urine Cocaine Screen None detected (None Detect) U Cannabinoids Screen None detected (None Detect) Serum Alcohol (<10) mg/dL Assess/Plan/Problems-Billing Assessment: - Patient Problems (1) ETOH abuse Code(s): F10.10 - ALCOHOL ABUSE, UNCOMPLICATED SNOMED Code(s): 57381979 Comment: - Last time detoxed in - Folate, thiamine and MVI supplementation - [facility] protocol - BP elevated but stable, no tachycardia (2) Depression with suicidal ideation Code(s): F32.9 - MAJOR DEPRESSIVE DISORDER, SINGLE EPISODE, UNSPECIFIED; R45.851 - SUICIDAL IDEATIONS SNOMED Code(s): 93862792 Comment: - Pyschiatry consulted - Contracted for safety today - Continue 1:1 until seen by psych (3) Elevated troponin Code(s): R74.8 - ABNORMAL LEVELS OF OTHER SERUM ENZYMES SNOMED Code(s): 508885957 Comment: - 0.04/0.03/0.03 - Stable, likely r/t renal disease (4) Hypertension Code(s): I10 - ESSENTIAL (PRIMARY) HYPERTENSION SNOMED Code(s): 34940725 Comment: - Continue amlodipine - Start clonidine BID (5) CKD (chronic kidney disease) Code(s): N18.9 - CHRONIC KIDNEY DISEASE, UNSPECIFIED SNOMED Code(s): 614446047 Comment: - Monitor renal function - continue IVF at maintenance (6) DVT prophylaxis Code(s): PXR3139 - SNOMED Code(s): 091363787 Comment: - Ambulatory Status and Disposition: Remain inpatient.
[2017-11-05] MEDS: cloNIDine TAB* 0.1 MG PO SCH ×2 (11:57→19:54)
[2017-11-05] MEDS: Sertraline* 50 MG TAB PO SCH (16:09)
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
[2017-11-06] MEDS: NS 0.9% 1000 ML* 1,000 ML IV SCH ×3 (06:04→22:07)
[2017-11-06] MEDS: Omeprazole CAP* 20 MG PO SCH (08:02)
[2017-11-06] MEDS: Folic Acid TAB* 1 MG PO SCH (08:03)
[2017-11-06] MEDS: Sertraline* 50 MG TAB PO SCH (08:03)
[2017-11-06] MEDS: Docusate CAP* 100 MG PO SCH ×2 (08:03→20:45)
[2017-11-06] MEDS: Thiamine TAB* 100 MG TAB PO SCH (08:03)
[2017-11-06] MEDS: Multivitamins/Minerals TAB PO SCH (08:03)
[2017-11-06] MEDS: Sucralfate TAB* 1 GM PO SCH ×3 (08:03→17:16)
[2017-11-06] MEDS: amLODIPine TAB* 5 MG PO SCH (08:03)
[2017-11-06] MEDS: cloNIDine TAB* 0.1 MG PO SCH ×2 (08:03→20:43)
--- NOTE | 2017-11-06 09:07 | PN ---
Subjective Date of Service: 11/06/17 Interval History: Patient reports he was feeling better yesterday compared to this morning now reporting he feels a little nauseous and continues to have tremors. He denies vomiting, abdominal pain, diaphoresis, hallucinations or palpitations. Some mild dizziness. He denies CP/SOB. Objective Active Medications: Acetaminophen (Tylenol Tab*) 650 mg PO Q4H PRN PRN Reason: PAIN Last Admin: 11/05/17 20:18 Dose: 650 mg Al Hydrox/Mg Hydrox/Simethicone (Maalox Plus*) 30 ml PO Q6H PRN PRN Reason: INDIGESTION Amlodipine Besylate (Norvasc Tab*) 5 mg PO DAILY [facility] Last Admin: 11/06/17 08:03 Dose: 5 mg Clonidine HCl (Catapres Tab*) 0.1 mg PO BID [facility] Last Admin: 11/06/17 08:03 Dose: 0.1 mg Docusate Sodium (Colace Cap*) 100 mg PO BID [facility] Last Admin: 11/06/17 08:03 Dose: 100 mg Folic Acid (Folvite Tab*) 1 mg PO DAILY [facility] Last Admin: 11/06/17 08:03 Dose: 1 mg Sodium Chloride (Ns 0.9% 1000 Ml*) 1,000 mls @ 125 mls/hr IV PER RATE [facility] Last Admin: 11/06/17 06:04 Dose: 125 mls/hr Lorazepam (Ativan Tab(*)) 0 - 6 mg PO .PER [facility] PROTOCOL [facility] PRN Reason: Protocol Last Admin: 11/05/17 20:19 Dose: 4 mg Multivitamins/Minerals (Theragran/Minerals Tab*) 1 tab PO DAILY [facility] Last Admin: 11/06/17 08:03 Dose: 1 tab Omeprazole (Prilosec Cap*) 20 mg PO DAILY@0730 [facility] Last Admin: 11/06/17 08:02 Dose: 20 mg Ondansetron HCl (Zofran Inj*) 4 mg IV Q4H PRN PRN Reason: NAUSEA/VOMITING Sertraline HCl (Zoloft*) 50 mg PO DAILY [facility] Last Admin: 11/06/17 08:03 Dose: 50 mg Sucralfate (Carafate*) 1 gm PO AC [facility] Last Admin: 11/06/17 08:03 Dose: 1 gm Thiamine HCl (Vitamin B-1 Tab*) 100 mg PO DAILY [facility] Last Admin: 11/06/17 08:03 Dose: 100 mg Vital Signs - 8 hr 11/06/17 11/06/17 11/06/17 02:00 02:20 04:00 Temperature 98.0 F Pulse Rate 69 Respiratory 20 20 20 Rate Blood Pressure 136/89 (mmHg) O2 Sat by Pulse 99 Oximetry 11/06/17 11/06/17 11/06/17 04:01 04:03 06:09 Temperature 98 F 98.0 F 97.6 F Pulse Rate 63 63 66 Respiratory 20 20 20 Rate Blood Pressure 137/90 137/90 136/87 (mmHg) O2 Sat by Pulse 98 98 99 Oximetry 11/06/17 11/06/17 08:00 08:13 Temperature 98.0 F Pulse Rate 78 Respiratory 16 20 Rate Blood Pressure 135/89 (mmHg) O2 Sat by Pulse 98 Oximetry Oxygen Devices in Use Now: None Appearance: well developed male A+O x3 in NAD. Very pleasent Eyes: No Scleral Icterus, PERRLA Ears/Nose/Mouth/Throat: NL Teeth, Lips, Gums, Mucous Membranes Moist Neck: NL Appearance and Movements; NL JVP Respiratory: Symmetrical Chest Expansion and Respiratory Effort, Clear to Auscultation Cardiovascular: NL Sounds; No Murmurs; No JVD, RRR, No Edema Abdominal: NL Sounds; No Tenderness; No Distention Extremities: No Edema, No Clubbing, Cyanosis Skin: No Rash or Ulcers, No Nodules or Sclerosis Neurological: Alert and Oriented x 3, NL Sensation, NL Muscle Strength and Tone Lines/Tubes/Other Access: Clean, Dry and Intact Peripheral IV Nutrition: Taking PO's Result Diagrams: 11/06/17 13:59 11/06/17 13:59 Additional Lab and Data: Lab Results 11/04/17 11/04/17 11/04/17 Range/Units 15:24 15:24 15:24 WBC 4.3 (3.5-10.8) 10^3/ul RBC 4.57 (4.0-5.4) 10^6/ul Hgb 13.8 L (14.0-18.0) g/dl Hct 41 L (42-52) % MCV 89 (80-94) fL MCH 30 (27-31) pg MCHC 34 (31-36) g/dl RDW 13 (10.5-15) % Plt Count 164 (150-450) 10^3/ul MPV 7.0 L (7.4-10.4) um3 Neut % (Auto) 67.4 (38-83) % Lymph % (Auto) 23.7 L (25-47) % [place] % (Auto) 7.9 H (0-7) % Eos % (Auto) 0.2 (0-6) % Baso % (Auto) 0.8 (0-2) % Absolute Neuts (auto) 2.9 (1.5-7.7) 10^3/ul Absolute Lymphs (auto) 1.0 (1.0-4.8) 10^3/ul Absolute Monos (auto) 0.3 (0-0.8) 10^3/ul Absolute Eos (auto) 0 (0-0.6) 10^3/ul Absolute Basos (auto) 0 (0-0.2) 10^3/ul Absolute Nucleated RBC 0 10^3/ul Nucleated RBC % 0 INR (Anticoag Therapy) (0.77-1.02) APTT (26.0-36.3) seconds Sodium 137 L (139-145) mmol/L Potassium 3.6 (3.5-5.0) mmol/L Chloride 99 L (101-111) mmol/L Carbon Dioxide 27 (22-32) mmol/L Anion Gap 11 (2-11) mmol/L BUN 14 (6-24) mg/dL Creatinine 1.20 H (0.67-1.17) mg/dL Est GFR ( Amer) 85.0 (>60) Est GFR (Non-Af Amer) 66.1 (>60) BUN/Creatinine Ratio 11.7 (8-20) Glucose 91 (70-100) mg/dL Lactic Acid 1.3 (0.5-2.0) mmol/L Calcium 9.6 (8.6-10.3) mg/dL Magnesium 1.5 L (1.9-2.7) mg/dL Total Bilirubin 1.00 (0.2-1.0) mg/dL AST 34 (13-39) U/L ALT 21 (7-52) U/L Alkaline Phosphatase 41 (34-104) U/L Total Creatine Kinase 371 H (10-223) U/L CK-MB (CK-2) 2.7 (0.6-6.3) ng/mL Troponin I 0.04 H* (<0.04) ng/mL Total Protein 7.9 (6.4-8.9) g/dL Albumin 4.5 (3.2-5.2) g/dL Globulin 3.4 (2-4) g/dL Albumin/Globulin Ratio 1.3 (1-3) TSH 2.05 (0.34-5.60) mcIU/mL Urine Color Urine Appearance Urine pH (5-9) Ur Specific [place] (1.010-1.030) Urine Protein (Negative) Urine Ketones (Negative) Urine Blood (Negative) Urine Nitrate (Negative) Urine Bilirubin (Negative) Urine Urobilinogen (Negative) Ur Leukocyte Esterase (Negative) Urine WBC (Auto) (Absent) Urine RBC (Auto) (Absent) Ur Squamous Epith Cells (Absent) Urine Bacteria (Absent) Urine Glucose (Negative) Salicylates < 2.50 (<30) mg/dL Urine Opiates Screen (None Detect) Acetaminophen < 15 mcg/mL Ur Barbiturates Screen (None Detect) Ur Phencyclidine Scrn (None Detect) Ur Amphetamines Screen (None Detect) U Benzodiazepines Scrn (None Detect) Urine Cocaine Screen (None Detect) U Cannabinoids Screen (None Detect) Serum Alcohol < 10 (<10) mg/dL 11/04/17 11/04/17 11/04/17 Range/Units 15:24 15:24 15:24 WBC (3.5-10.8) 10^3/ul RBC (4.0-5.4) 10^6/ul Hgb (14.0-18.0) g/dl Hct (42-52) % MCV (80-94) fL MCH (27-31) pg MCHC (31-36) g/dl RDW (10.5-15) % Plt Count (150-450) 10^3/ul MPV (7.4-10.4) um3 Neut % (Auto) (38-83) % Lymph % (Auto) (25-47) % [place] % (Auto) (0-7) % Eos % (Auto) (0-6) % Baso % (Auto) (0-2) % Absolute Neuts (auto) (1.5-7.7) 10^3/ul Absolute Lymphs (auto) (1.0-4.8) 10^3/ul Absolute Monos (auto) (0-0.8) 10^3/ul Absolute Eos (auto) (0-0.6) 10^3/ul Absolute Basos (auto) (0-0.2) 10^3/ul Absolute Nucleated RBC 10^3/ul Nucleated RBC % INR (Anticoag Therapy) 0.84 (0.77-1.02) APTT 30.3 (26.0-36.3) seconds Sodium (139-145) mmol/L Potassium (3.5-5.0) mmol/L Chloride (101-111) mmol/L Carbon Dioxide (22-32) mmol/L Anion Gap (2-11) mmol/L BUN (6-24) mg/dL Creatinine (0.67-1.17) mg/dL Est GFR ( Amer) (>60) Est GFR (Non-Af Amer) (>60) BUN/Creatinine Ratio (8-20) Glucose (70-100) mg/dL Lactic Acid (0.5-2.0) mmol/L Calcium (8.6-10.3) mg/dL Magnesium (1.9-2.7) mg/dL Total Bilirubin (0.2-1.0) mg/dL AST (13-39) U/L ALT (7-52) U/L Alkaline Phosphatase (34-104) U/L Total Creatine Kinase (10-223) U/L CK-MB (CK-2) (0.6-6.3) ng/mL Troponin I (<0.04) ng/mL Total Protein (6.4-8.9) g/dL Albumin (3.2-5.2) g/dL Globulin (2-4) g/dL Albumin/Globulin Ratio (1-3) TSH (0.34-5.60) mcIU/mL Urine Color Yellow Urine Appearance Clear Urine pH 9.0 (5-9) Ur Specific [place] 1.016 (1.010-1.030) Urine Protein 1+(30 mg/dl) A (Negative) Urine Ketones Negative (Negative) Urine Blood Negative (Negative) Urine Nitrate Negative (Negative) Urine Bilirubin Negative (Negative) Urine Urobilinogen Negative (Negative) Ur Leukocyte Esterase Negative (Negative) Urine WBC (Auto) Absent (Absent) Urine RBC (Auto) Trace(0-2/hpf) (Absent) Ur Squamous Epith Cells Present A (Absent) Urine Bacteria Absent (Absent) Urine Glucose Negative (Negative) Salicylates (<30) mg/dL Urine Opiates Screen None detected (None Detect) Acetaminophen mcg/mL Ur Barbiturates Screen None detected (None Detect) Ur Phencyclidine Scrn None detected (None Detect) Ur Amphetamines Screen None detected (None Detect) U Benzodiazepines Scrn None detected (None Detect) Urine Cocaine Screen None detected (None Detect) U Cannabinoids Screen None detected (None Detect) Serum Alcohol (<10) mg/dL Assess/Plan/Problems-Billing Assessment: Mr. Mckenna is a 42 yo male with a PMH of ETOH abuse, CKD, HTN, GERD, who presented to the ER with c/o withdrawals with shaking, weakness, and headache and c/o of suicidal ideation. Patient reported binge drinking for the past 2 weeks, with scheduled plan to be admitted to [facility] for inpatient rehab. - Patient Problems (1) ETOH abuse Comment: - Last time detoxed in - Folate, thiamine and MVI supplementation - send BMP to check electrolytes - Continue WAM protocol - Plan to be DC to inpatient [facility] when medically stable (2) Depression with suicidal ideation Comment: - Pyschiatry consulted - Ok to DC 1:1 per psych, does not feels that he is suicidal - add on Vitamin D level (3) Elevated troponin Current Visit: No Status: Acute Code(s): R74.8 - ABNORMAL LEVELS OF OTHER SERUM ENZYMES SNOMED Code(s): 885929949 Comment: - 0.04/0.03/0.03 - Suspect demand ischemia. No EKG changes. Echo previous admission in 08/2017 - wnls. May benefit from outpatient stress at some point. (4) Hypertension Comment: - Improving - Continue amlodipine - Clonidine BID started 11/05 (5) CKD (chronic kidney disease) Comment: - Chronic Kidney disease?? Only have noted elevated creatinine in the setting of illness/intoxication, now resolving with IVFs. Follow up with PCP. - urinalysis appears negative, but does have 1+ protein noted. Will add on HgA1C as I do not see it has been checked in our lab system at least. (6) DVT prophylaxis Comment: - Ambulatory (7) Full code status Status and Disposition: Remain inpatient. DC to inpatient [facility] when medically stable.
[2017-11-06] MEDS: LORazepam TAB(*) 1 MG PO SCH ×2 (12:34→20:43)
[2017-11-06 14:22] LABS: ABS Basophils 0 10^3/ul (0-0.2); ABS Eosinophils 0.1 10^3/ul (0-0.6); ABS Lymphocytes 1.1 10^3/ul (1.0-4.8); ABS Monocytes 0.3 10^3/ul (0-0.8); ABS Neutrophils 2.2 10^3/ul (1.5-7.7); ABS Nucleated RBC 0 10^3/ul; Eosinophil % 2.4 % (0-6); Hematocrit 38 % (42-52); Hemoglobin 12.9 g/dl (14.0-18.0); Lymphocyte % 29.3 % (25-47); Mean Corpuscular HGB Conc 34 g/dl (31-36); Mean Corpuscular Hemoglobin 30 pg (27-31); Mean Corpuscular Volume 88 fL (80-94); Mean Platelet Volume 6.9 um3 (7.4-10.4); Nucleated Red Blood Cells % 0.1; Platelet Count 141 10^3/ul (150-450); Red Blood Count 4.28 10^6/ul (4.0-5.4); Red Cell Distribution Width 13 % (10.5-15); White Blood Count 3.8 10^3/ul (3.5-10.8)
[2017-11-06 14:40] LABS: EGFR Non-African American 68.7 (>60)
[2017-11-06] MEDS ORDERED: Magnesium Sulfate 2 GM IV* 2 GM/50 ML BAG IVPB ONE (14:51)
--- NOTE | 2017-11-06 16:22 | CONSULT ---
Identification - Patient Identification Reason for Psychiatric Consultation: Suicidal Ideation -: Patient is a 42 year old, M admitted on 11/05/17. - MHU Identification Employment Status: Employed Hx Psychiatric Hospitalization: No History - Objective HPI: James is feeling slightly better in terms of his detox, although his anxiety and depression, perhaps predictably, have not changed much since yesterday. He is tolerating the introduction of sertraline well so far and denies untoward effects. Staff indicate that he will likely remain hospitalized on the [facility] protocol until November 09 when he can be transferred to inpatient [facility] rehab. James continues to deny SI and is hopeful for the future. "I'm gonna get there eventually." Lab Results: Laboratory Tests 11/06/17 11/06/17 13:59 13:59 WBC 3.8 RBC 4.28 Hgb 12.9 L Hct 38 L MCV 88 MCH 30 MCHC 34 RDW 13 Plt Count 141 L MPV 6.9 L Neut % (Auto) 59.3 Lymph % (Auto) 29.3 [place] % (Auto) 8.2 H Eos % (Auto) 2.4 Baso % (Auto) 0.8 Absolute Neuts (auto) 2.2 Absolute Lymphs (auto) 1.1 Absolute Monos (auto) 0.3 Absolute Eos (auto) 0.1 Absolute Basos (auto) 0 Absolute Nucleated RBC 0 Nucleated RBC % 0.1 Sodium 133 L Potassium 3.8 Chloride 105 Carbon Dioxide 22 Anion Gap 6 BUN 10 Creatinine 1.16 Est GFR ( Amer) 88.4 Est GFR (Non-Af Amer) 68.7 BUN/Creatinine Ratio 8.6 Glucose 123 H Calcium 9.0 Magnesium 1.7 L Vitamin B12 554 25-OH Vitamin D Total 20.2 Exam Appearance: Well Developed/Nourished Hygiene: Normal Grooming: Well Kept Psychomotor Activities: Abnormal-Decreased Exhibits Abnormal Movement: No Attitude and Relatedness: Cooperative Eye Contact: Good - Speech Quality: Unpressured Latencies: Normal Quantity: Appropriate Patient's Decription of Mood: "Sad" Observed Affect: Constricted Affect Consistent with: Dysphoria Patient's Thought Process: Coherent Thought Content: No Passive Wish, No Suicidal Planning, No Homicidal Ideation, No Paranoid Ideation Experiencing Hallucinations: No, Sensorium is Clear Type of Hallucinations: Visual: No, Auditory: No, Command: No Level of Consciousness: Alert Orientation: Yes Intact, Yes Orientated to Time, Yes Orientated to Place, Yes Orientated to Person Impulse Control: Poor Insight and Judgement: Impaired Impression - Impression Clinical Impression: 42 y.o. single, AA male with a history of alcohol dependence admitted to medicine for alcohol detoxification made suicidal statements in the ED secondary to untreated depression and anxiety. Inpatient DSM-V Dx: F32.9 Merits Inpatient Hospitalization: No Problem List - MHU Problems Type of Problem: Mood Status of Problem: Active Plan - Treatment Plan Treatment Plan: We have started a trial of sertraline 50mg PO qday, which he is tolerating well. [facility] inpatient is a registered dual-diagnosis facility and they have a wire spooler who can manage this medication while he is undergoing alcohol rehabilitation there. The patient is not suicidal and does not warrant BSU treatment. Psychiatry is signing off but can be reconsulted in the event of a change in the patient's presentation. Continued Medication Management: Start Medication Medications: Current Medications Acetaminophen (Tylenol Tab*) 650 mg PO Q4H PRN PRN Reason: PAIN Last Admin: 11/05/17 20:18 Dose: 650 mg Al Hydrox/Mg Hydrox/Simethicone (Maalox Plus*) 30 ml PO Q6H PRN PRN Reason: INDIGESTION Amlodipine Besylate (Norvasc Tab*) 5 mg PO DAILY [facility] Last Admin: 11/06/17 08:03 Dose: 5 mg Clonidine HCl (Catapres Tab*) 0.1 mg PO BID [facility] Last Admin: 11/06/17 08:03 Dose: 0.1 mg Docusate Sodium (Colace Cap*) 100 mg PO BID [facility] Last Admin: 11/06/17 08:03 Dose: 100 mg Folic Acid (Folvite Tab*) 1 mg PO DAILY [facility] Last Admin: 11/06/17 08:03 Dose: 1 mg Sodium Chloride (Ns 0.9% 1000 Ml*) 1,000 mls @ 125 mls/hr IV PER RATE [facility] Last Admin: 11/06/17 13:57 Dose: 125 mls/hr Lorazepam (Ativan Tab(*)) 0 - 6 mg PO .PER [facility] PROTOCOL [facility] PRN Reason: Protocol Last Admin: 11/06/17 12:34 Dose: 2 mg Multivitamins/Minerals (Theragran/Minerals Tab*) 1 tab PO DAILY [facility] Last Admin: 11/06/17 08:03 Dose: 1 tab Omeprazole (Prilosec Cap*) 20 mg PO DAILY@0730 [facility] Last Admin: 11/06/17 08:02 Dose: 20 mg Ondansetron HCl (Zofran Inj*) 4 mg IV Q4H PRN PRN Reason: NAUSEA/VOMITING Sertraline HCl (Zoloft*) 50 mg PO DAILY [facility] Last Admin: 11/06/17 08:03 Dose: 50 mg Sucralfate (Carafate*) 1 gm PO AC [facility] Last Admin: 11/06/17 12:21 Dose: 1 gm Thiamine HCl (Vitamin B-1 Tab*) 100 mg PO DAILY [facility] Last Admin: 11/06/17 08:03 Dose: 100 mg - Discharge Plan Discharge Plan: Drug/Alcohol Rehab
[2017-11-07] MEDS: NS 0.9% 1000 ML* 1,000 ML IV SCH (06:19)
[2017-11-07] MEDS: Thiamine TAB* 100 MG TAB PO SCH (08:27)
[2017-11-07] MEDS: Cholecalciferol TAB* 1000 UNITS PO SCH (08:27)
[2017-11-07] MEDS: Sucralfate TAB* 1 GM PO SCH ×3 (08:27→16:55)
[2017-11-07] MEDS: cloNIDine TAB* 0.1 MG PO SCH ×2 (08:27→19:59)
[2017-11-07] MEDS: Omeprazole CAP* 20 MG PO SCH (08:27)
[2017-11-07] MEDS: Folic Acid TAB* 1 MG PO SCH (08:27)
[2017-11-07] MEDS: Sertraline* 50 MG TAB PO SCH (08:28)
[2017-11-07] MEDS: Multivitamins/Minerals TAB PO SCH (08:28)
[2017-11-07] MEDS: amLODIPine TAB* 5 MG PO SCH (08:28)
[2017-11-07] MEDS: Docusate CAP* 100 MG PO SCH ×2 (08:31→19:59)
[2017-11-07] MEDS ORDERED: LORazepam TAB(*) 1 MG PO PRN (12:45)
--- NOTE | 2017-11-07 15:12 | PN ---
Subjective Date of Service: 11/07/17 Interval History: Patient has on complaints besides tremulousness, difficulty sleeping and non- bloody diarrhea. Patient denies F/C, N/V, abdominal pain, CP, SOB, or other pain. Patient expresses that he does not want to be here any more and that he would like to go home tomorrow. Family History: Unchanged from Admission Social History: Unchanged from Admission Past Medical History: Unchanged from Admission Objective Active Medications: Acetaminophen (Tylenol Tab*) 650 mg PO Q4H PRN PRN Reason: PAIN Last Admin: 11/05/17 20:18 Dose: 650 mg Al Hydrox/Mg Hydrox/Simethicone (Maalox Plus*) 30 ml PO Q6H PRN PRN Reason: INDIGESTION Amlodipine Besylate (Norvasc Tab*) 5 mg PO DAILY [facility] Last Admin: 11/07/17 08:28 Dose: 5 mg Cholecalciferol (Vitamin D Tab*) 2,000 units PO DAILY [facility] Last Admin: 11/07/17 08:27 Dose: 2,000 units Clonidine HCl (Catapres Tab*) 0.1 mg PO BID [facility] Last Admin: 11/07/17 08:27 Dose: 0.1 mg Docusate Sodium (Colace Cap*) 100 mg PO BID [facility] Last Admin: 11/07/17 08:31 Dose: Not Given Folic Acid (Folvite Tab*) 1 mg PO DAILY [facility] Last Admin: 11/07/17 08:27 Dose: 1 mg Lorazepam (Ativan Tab(*)) 0 - 6 mg PO .PER [facility] PROTOCOL [facility] PRN Reason: Protocol Last Admin: 11/06/17 20:43 Dose: 3 mg Lorazepam (Ativan Tab(*)) 1 mg PO BEDTIME PRN PRN Reason: INSOMNIA Melatonin (Melatonin (Nf)) 1 mg PO BEDTIME PRN PRN Reason: INSOMNIA Multivitamins/Minerals (Theragran/Minerals Tab*) 1 tab PO DAILY [facility] Last Admin: 11/07/17 08:28 Dose: 1 tab Omeprazole (Prilosec Cap*) 20 mg PO DAILY@0730 [facility] Last Admin: 11/07/17 08:27 Dose: 20 mg Ondansetron HCl (Zofran Inj*) 4 mg IV Q4H PRN PRN Reason: NAUSEA/VOMITING Sertraline HCl (Zoloft*) 50 mg PO DAILY [facility] Last Admin: 11/07/17 08:28 Dose: 50 mg Sucralfate (Carafate*) 1 gm PO AC [facility] Last Admin: 11/07/17 11:58 Dose: 1 gm Thiamine HCl (Vitamin B-1 Tab*) 100 mg PO DAILY [facility] Last Admin: 11/07/17 08:27 Dose: 100 mg Vital Signs - 8 hr 11/07/17 11/07/17 11/07/17 08:00 10:31 12:01 Temperature 98.6 F 98.9 F 99.0 F Pulse Rate 63 69 62 Respiratory 20 24 Rate Blood Pressure 139/92 147/99 146/81 (mmHg) O2 Sat by Pulse 99 99 99 Oximetry 11/07/17 14:04 Temperature 98.8 F Pulse Rate 66 Respiratory 20 Rate Blood Pressure 157/94 (mmHg) O2 Sat by Pulse 99 Oximetry Oxygen Devices in Use Now: None Appearance: Patient is a 42 yo male who appears stated age and is sitting in the bed in [facility]. Eyes: No Scleral Icterus, PERRLA Ears/Nose/Mouth/Throat: NL Teeth, Lips, Gums Neck: NL Appearance and Movements; NL JVP, Trachea Midline Respiratory: Symmetrical Chest Expansion and Respiratory Effort, Clear to Auscultation Cardiovascular: NL Sounds; No Murmurs; No JVD, RRR, No Edema Abdominal: NL Sounds; No Tenderness; No Distention, No Hepatosplenomegaly Lymphatic: No Cervical Adenopathy Extremities: No Edema, No Clubbing, Cyanosis Skin: No Rash or Ulcers, No Nodules or Sclerosis Neurological: Alert and Oriented x 3, NL Sensation, NL Gait, NL Muscle Strength and Tone, - - Slight Tremor, CN II-XII intact. Result Diagrams: 11/06/17 13:59 11/06/17 13:59 Additional Lab and Data: Lab Results Assess/Plan/Problems-Billing Assessment: Mr. Mckenna is a 42 yo male with a PMH of ETOH abuse, CKD, HTN, GERD, who presented to the ER with c/o withdrawals with shaking, weakness, and headache and c/o of suicidal ideation. Patient reported binge drinking for the past 2 weeks, with scheduled plan to be admitted to [facility] for inpatient rehab. - Patient Problems (1) ETOH abuse Current Visit: Yes Status: Chronic Priority: Medium Code(s): F10.10 - ALCOHOL ABUSE, UNCOMPLICATED SNOMED Code(s): 61180346 Comment: Last time detoxed in Folate, thiamine and MVI supplementation. Hypomagnesemic, replaced. Continue WAM protocol, scoring infrequently. Still has tremulousness and diarrhea. Plan to be DC to inpatient [facility] when medically stable (2) Depression with suicidal ideation Current Visit: Yes Status: Acute Code(s): F32.9 - MAJOR DEPRESSIVE DISORDER , SINGLE EPISODE, UNSPECIFIED; R45.851 - SUICIDAL IDEATIONS SNOMED Code(s): 83570552 Comment: Pyschiatry consulted Ok to DC 1:1 per psych, does not feels that he is suicidal. Started on Sertraline. Borderline low Vitamin D, will supplement. (3) Hypertension Current Visit: Yes Status: Acute Code(s): I10 - ESSENTIAL (PRIMARY) HYPERTENSION SNOMED Code(s): 64406849 Comment: Improving, only mildly elevated, will not adjust medications until no longer detoxing. Continue amlodipine Clonidine BID started 11/05 (4) CKD (chronic kidney disease) Current Visit: Yes Status: Chronic Priority: Medium Code(s): N18.9 - CHRONIC KIDNEY DISEASE, UNSPECIFIED SNOMED Code(s): 472708069 Comment: Possibly stage II. Large muscle mass. Should be followed outpatient. (5) Elevated troponin Current Visit: No Status: Acute Code(s): R74.8 - ABNORMAL LEVELS OF OTHER SERUM ENZYMES SNOMED Code(s): 075151803 Comment: 0.04/0.03/0.03 Suspect demand ischemia. No EKG changes. Echo previous admission in 08/2017 - wnls. May benefit from outpatient stress at some point. (6) DVT prophylaxis Current Visit: Yes Status: Acute Priority: High Onset Date: 11/07/14 Code(s): HAM0877 - SNOMED Code(s): 855904540 Comment: Ambulatory, low risk (7) Full code status Current Visit: Yes Status: Acute Priority: Medium Onset Date: 11/07/14 Code(s): Z78.9 - OTHER SPECIFIED HEALTH STATUS SNOMED Code(s): 075774304 Status and Disposition: Remain inpatient. DC to inpatient [facility] when medically stable.
[2017-11-07] MEDS: CMCS Melatonin (NF) 3 MG TAB PO PRN (20:41)
[2017-11-08 06:06] LABS: ABS Basophils 0 10^3/ul (0-0.2); ABS Eosinophils 0.2 10^3/ul (0-0.6); ABS Lymphocytes 1.5 10^3/ul (1.0-4.8); ABS Monocytes 0.6 10^3/ul (0-0.8); ABS Neutrophils 2.8 10^3/ul (1.5-7.7); ABS Nucleated RBC 0 10^3/ul; Eosinophil % 3.3 % (0-6); Hematocrit 39 % (42-52); Hemoglobin 13.5 g/dl (14.0-18.0); Lymphocyte % 29.3 % (25-47); Mean Corpuscular HGB Conc 34 g/dl (31-36); Mean Corpuscular Hemoglobin 30 pg (27-31); Mean Corpuscular Volume 88 fL (80-94); Mean Platelet Volume 6.7 um3 (7.4-10.4); Nucleated Red Blood Cells % 0.2; Platelet Count 150 10^3/ul (150-450); Red Blood Count 4.43 10^6/ul (4.0-5.4); Red Cell Distribution Width 13 % (10.5-15)
[2017-11-08 06:26] LABS: EGFR Non-African American 54.4 (>60)
[2017-11-08] MEDS ORDERED: Magnesium Sulfate 2 GM IV* 2 GM/50 ML BAG IVPB ONE (07:04)
[2017-11-08] MEDS: Docusate CAP* 100 MG PO SCH ×2 (08:01→22:04)
[2017-11-08] MEDS: cloNIDine TAB* 0.1 MG PO SCH ×2 (08:01→22:04)
[2017-11-08] MEDS: Cholecalciferol TAB* 1000 UNITS PO SCH (08:01)
[2017-11-08] MEDS: Folic Acid TAB* 1 MG PO SCH (08:01)
[2017-11-08] MEDS: Sucralfate TAB* 1 GM PO SCH ×3 (08:01→16:45)
[2017-11-08] MEDS: Thiamine TAB* 100 MG TAB PO SCH (08:01)
[2017-11-08] MEDS: Omeprazole CAP* 20 MG PO SCH (08:01)
[2017-11-08] MEDS: amLODIPine TAB* 5 MG PO SCH (08:01)
[2017-11-08] MEDS: Multivitamins/Minerals TAB PO SCH (08:01)
[2017-11-08] MEDS: Sertraline* 50 MG TAB PO SCH (08:03)
--- NOTE | 2017-11-08 14:53 | PN ---
Subjective Date of Service: 11/08/17 Interval History: Patient has no complaints. Did no sleep well overnight. Moderate improvement with pain medication. Patient denies F/C, N/V, abdominal pain, diarrhea, constipation, CP, SOB, tremors, dizziness, palpitations, or other pain. Patient is agreeable to staying until tomorrow with discharge to [facility]. Family History: Unchanged from Admission Social History: Unchanged from Admission Past Medical History: Unchanged from Admission Objective Active Medications: Acetaminophen (Tylenol Tab*) 650 mg PO Q4H PRN PRN Reason: PAIN Last Admin: 11/05/17 20:18 Dose: 650 mg Al Hydrox/Mg Hydrox/Simethicone (Maalox Plus*) 30 ml PO Q6H PRN PRN Reason: INDIGESTION Amlodipine Besylate (Norvasc Tab*) 5 mg PO DAILY [facility] Last Admin: 11/08/17 08:01 Dose: 5 mg Cholecalciferol (Vitamin D Tab*) 2,000 units PO DAILY [facility] Last Admin: 11/08/17 08:01 Dose: 2,000 units Clonidine HCl (Catapres Tab*) 0.1 mg PO BID [facility] Last Admin: 11/08/17 08:01 Dose: 0.1 mg Docusate Sodium (Colace Cap*) 100 mg PO BID [facility] Last Admin: 11/08/17 08:01 Dose: Not Given Folic Acid (Folvite Tab*) 1 mg PO DAILY [facility] Last Admin: 11/08/17 08:01 Dose: 1 mg Lorazepam (Ativan Tab(*)) 0 - 6 mg PO .PER [facility] PROTOCOL [facility] PRN Reason: Protocol Last Admin: 11/06/17 20:43 Dose: 3 mg Lorazepam (Ativan Tab(*)) 1 mg PO BEDTIME PRN PRN Reason: INSOMNIA Melatonin (Melatonin (Nf)) 3 mg PO BEDTIME PRN PRN Reason: INSOMNIA Last Admin: 11/07/17 20:41 Dose: 3 mg Multivitamins/Minerals (Theragran/Minerals Tab*) 1 tab PO DAILY [facility] Last Admin: 11/08/17 08:01 Dose: 1 tab Omeprazole (Prilosec Cap*) 20 mg PO DAILY@0730 [facility] Last Admin: 11/08/17 08:01 Dose: 20 mg Ondansetron HCl (Zofran Inj*) 4 mg IV Q4H PRN PRN Reason: NAUSEA/VOMITING Sertraline HCl (Zoloft*) 50 mg PO DAILY [facility] Last Admin: 11/08/17 08:03 Dose: 50 mg Sucralfate (Carafate*) 1 gm PO AC [facility] Last Admin: 11/08/17 11:48 Dose: 1 gm Thiamine HCl (Vitamin B-1 Tab*) 100 mg PO DAILY [facility] Last Admin: 11/08/17 08:01 Dose: 100 mg Vital Signs - 8 hr 11/08/17 11/08/17 11/08/17 08:00 08:08 10:10 Temperature 98.6 F 98.0 F Pulse Rate 55 73 Respiratory 18 18 18 Rate Blood Pressure 126/82 139/79 (mmHg) O2 Sat by Pulse 98 99 Oximetry Oxygen Devices in Use Now: None Appearance: Patient is a 42yo male who appears stated age and is sitting in the bed in [facility]. Eyes: No Scleral Icterus, PERRLA Ears/Nose/Mouth/Throat: NL Teeth, Lips, Gums, Clear Oropharnyx, Mucous Membranes Moist Neck: NL Appearance and Movements; NL JVP, Trachea Midline Respiratory: Symmetrical Chest Expansion and Respiratory Effort, Clear to Auscultation Cardiovascular: NL Sounds; No Murmurs; No JVD, RRR, No Edema Abdominal: NL Sounds; No Tenderness; No Distention, No Hepatosplenomegaly Lymphatic: No Cervical Adenopathy Extremities: No Edema, No Clubbing, Cyanosis Skin: No Rash or Ulcers, No Nodules or Sclerosis Neurological: Alert and Oriented x 3, NL Sensation, NL Muscle Strength and Tone , - - CN II-XII intact. No tremors. Result Diagrams: 11/08/17 05:32 11/08/17 05:32 Additional Lab and Data: Lab Results Assess/Plan/Problems-Billing Assessment: Mr. Mckenna is a 42 yo male with a PMH of ETOH abuse, CKD, HTN, GERD, who presented to the ER with c/o withdrawals with shaking, weakness, and headache and c/o of suicidal ideation. Patient reported binge drinking for the past 2 weeks, with scheduled plan to be admitted to [facility] for inpatient rehab. - Patient Problems (1) ETOH abuse Current Visit: Yes Status: Chronic Priority: Medium Code(s): F10.10 - ALCOHOL ABUSE, UNCOMPLICATED SNOMED Code(s): 68371322 Comment: Last time detoxed in [facility], thiamine and MVI supplementation. Hypomagnesemic, replaced. Discontinue WAM.. Plan to be DC to inpatient [facility] when medically stable (2) Depression with suicidal ideation Current Visit: Yes Status: Acute Code(s): F32.9 - MAJOR DEPRESSIVE DISORDER , SINGLE EPISODE, UNSPECIFIED; R45.851 - SUICIDAL IDEATIONS SNOMED Code(s): 38522980 Comment: Pyschiatry consulted, appreciate input. Started on Sertraline. Borderline low Vitamin D, will supplement. (3) Hypertension Current Visit: Yes Status: Acute Code(s): I10 - ESSENTIAL (PRIMARY) HYPERTENSION SNOMED Code(s): 70865402 Comment: Normotensive, Continue amlodipine. Clonidine BID started 11/05 (4) CKD (chronic kidney disease) Current Visit: Yes Status: Chronic Priority: Medium Code(s): N18.9 - CHRONIC KIDNEY DISEASE, UNSPECIFIED SNOMED Code(s): 436712524 Comment: Cret increased today. Should be followed up outpatient. (5) Elevated troponin Current Visit: No Status: Acute Code(s): R74.8 - ABNORMAL LEVELS OF OTHER SERUM ENZYMES SNOMED Code(s): 094012052 Comment: 0.04/0.03/0.03 Suspect demand ischemia. No EKG changes. Echo previous admission in 08/2017 - wnls. May benefit from outpatient stress at some point. (6) DVT prophylaxis Current Visit: Yes Status: Acute Priority: High Onset Date: 11/07/14 Code(s): IYJ6510 - SNOMED Code(s): 275860840 Comment: Ambulatory, low risk (7) Full code status Current Visit: Yes Status: Acute Priority: Medium Onset Date: 11/07/14 Code(s): Z78.9 - OTHER SPECIFIED HEALTH STATUS SNOMED Code(s): 157718968 Status and Disposition: Remain inpatient. DC to inpatient [facility] tomorrow.
[2017-11-08] MEDS: CMCS Melatonin (NF) 3 MG TAB PO PRN (22:04)
[2017-11-09 06:38] LABS: EGFR Non-African American 50.7 (>60)
[2017-11-09 07:56] VITALS: BP 125/76
[2017-11-09] MEDS: Cholecalciferol TAB* 1000 UNITS PO SCH (09:51)
[2017-11-09] MEDS: amLODIPine TAB* 5 MG PO SCH (09:51)
[2017-11-09] MEDS: Folic Acid TAB* 1 MG PO SCH (09:51)
[2017-11-09] MEDS: Omeprazole CAP* 20 MG PO SCH (09:51)
[2017-11-09] MEDS: cloNIDine TAB* 0.1 MG PO SCH (09:51)
[2017-11-09] MEDS: Sucralfate TAB* 1 GM PO SCH (09:52)
[2017-11-09] MEDS: Multivitamins/Minerals TAB PO SCH (09:52)
[2017-11-09] MEDS: Docusate CAP* 100 MG PO SCH (09:52)
[2017-11-09] MEDS: Sertraline* 50 MG TAB PO SCH (09:52)
[2017-11-09] MEDS: Thiamine TAB* 100 MG TAB PO SCH (09:52)
--- NOTE | 2017-11-09 23:55 | DS ---
CC: Dr. Bishop; Dr. Nadine Kowalski; [facility] Inpatient Rehab in [place]* DISCHARGE SUMMARY: DATE OF ADMISSION: 11/04/17 DATE OF DISCHARGE: 11/09/17 PRIMARY CARE PROVIDER: Dr. Bishop. MY ATTENDING WHILE IN THE HOSPITAL: Dr. Nadine Kowalski* (dictated by MONIQUE Potter). PRIMARY DISCHARGE DIAGNOSIS: Alcohol withdrawal. SECONDARY DISCHARGE DIAGNOSES: 1. Hypertension. 2. Chronic kidney disease. 3. Gastroesophageal reflux disease 4. History of syncope. STUDIES DONE WHILE IN THE HOSPITAL: Abdomen and pelvis CT from 11/04/17 read as no evidence for acute cause to the patient's abdominal pain, mild hepatomegaly and hepatic steatosis, small nonobstructing right renal calculus and right renal scarring is noted. MEDICATIONS AT DISCHARGE: 1. Pantoprazole 40 mg p.o. daily. 2. Folic acid 1 mg p.o. daily. 3. Tylenol 650 mg p.o. q.4 hours as needed. 4. Amlodipine 5 mg p.o. daily. 5. Vitamin 100 mg p.o. daily. 6. Sucralfate 1 g p.o. a.c. 7. Vitamin D 2000 units p.o. daily. 8. Clonidine 0.1 mg p.o. b.i.d. 9. Melatonin 3 mg p.o. at bedtime as needed. 10. Sertraline 50 mg p.o. daily. New medications at discharge: 1. Vitamin D. 2. Clonidine. 3. Melatonin. 4. Sertraline. Medications discontinued at discharge: None. HOSPITAL COURSE: This is a brief summary of the patient's presentation. For more details, please see history and physical from [facility] from . In brief, the patient is a 42-year-old male with a past medical history significant for the above who presents from [facility] inpatient rehab where he has been abstinent from alcohol with symptoms of alcohol withdrawal including tremulousness, diarrhea and altered mental status. The patient states he had been depressed recently, but having some suicidal ideation and homicidal ideation. The patient had no other symptoms. The patient had no abnormal laboratory values or hemodynamic instability. The patient was admitted to the hospital for alcohol withdrawal and psychiatric evaluation. The patient had a classic syndrome of withdrawal with shakiness, altered mental status. The patient had no other symptoms. The patient had a folate, thiamine, multivitamin. His blood pressure was elevated. He had no tachycardia throughout his admission. The patient's kidney function, which has been consistently at this institution with creatinine of around 1.4 had decreased to creatinine of around 1 and on presentation was increased to about 1.2, which decreased slightly with fluids and then returned to his baseline of 1.4. At discharge, the patient was also hypomagnesemic, which was replaced. The patient had troponin of 0.04 on admission likely due to demand ischemia from alcohol withdrawal. The patient was slightly anemic with a hemoglobin of 13.8, which decreased to a lowest of 12.9 likely due to delusional anemia. The patient was also found to have a borderline low vitamin D and normal B12 on admission. The patient was seen in consultation with Dr. Eduardo Schultz of Psychiatry who said that he was not a danger to himself or others and that he should start on sertraline and should be returned to [facility] upon admission directly. The patient improved greatly. The patient was started on vitamin D supplementation and clonidine for his elevated blood pressure and low vitamin D. The patient's withdrawal symptoms had abated on 11/08/17 and the patient was amenable to discharge on 11/09/17 back to [facility] to continue inpatient drug rehab. PHYSICAL EXAMINATION ON DAY OF DISCHARGE: General: The patient is a 42-year- old male who appears stated age and sitting comfortably in bed, in no acute distress. Vital Signs: At the time of discharge, temperature 98.4, heart rate 50, respiratory rate 18, oxygen saturation 100% on room air, blood pressure 125/ 76. HEENT: Head normocephalic, atraumatic. Sclerae anicteric. No conjunctival injection. Nasal mucosa moist. Oral mucosa moist. No pharyngeal erythema, discharge or exudate. Neck: Supple, nontender. No lymphadenopathy. No carotid bruit auscultated. Cardiac: Regular rate and rhythm. No clicks, murmurs, gallops, or rubs. Pulses 2+ in bilateral dorsalis pedis, posterior tibialis, and radial areas. No lower extremity edema noted. No calf tenderness noted. Respiratory: Clear to auscultation bilaterally. No wheezes, rales, or rhonchi. Good air exchange bilaterally. Abdomen: Soft, nontender, nondistended. Bowel sounds present, normoactive in all 4 quadrants. No hepatosplenomegaly. No abdominal bruits auscultated. Genitourinary: No suprapubic tenderness or CVA tenderness. Skin: Clean, dry, and intact. No rash. Neuro: Cranial nerves II through XII intact. No tremulousness. No altered mental status. No focal deficits. Psychiatric: Very pleasant and cooperative. LABORATORY DATA ON DAY OF DISCHARGE: Pertinent values noted in the hospital course above. DISCHARGE PLAN: The patient will be discharged to [facility] inpatient rehab. The patient was started on sertraline, which we monitored inpatient. The patient should follow up with Psychiatry after his discharge from rehab. The patient should be continued on clonidine, vitamin D and vitamin supplementation. The patient should have a repeat CMP drawn with his primary care provider on discharge from [facility] to evaluate kidney function and magnesium level. The patient should engage in activities as tolerated, have a heart healthy diet, caffeine okay. The patient should abstain from alcohol permanently. The patient should return to hospital for alarming symptoms such as seizures, chest pain or shortness of breath. TIME SPENT: Approximately 60 minutes were spent on this discharge, 30 of which spent [id number] with the patient obtaining history and physical and discussing the treatment plan. MONIQUE POTTER [id number]/CPS #: [id number] MTDD
== END 2017-11-09 10:37 | DRG 775 ==
LOC: ED 13:44 → MEDTELE 17:14 → OBSVTOIN 11-05 16:28
PROVIDERS: ADMIT Internal Medicine; ATTEND Internal Medicine
DX: F10.239 Alcohol dependence with withdrawal, unspecified (principal); I24.8 Other forms of acute ischemic heart disease; R45.851 Suicidal ideations; Y90.9 Presence of alcohol in blood, level not specified; I12.9 Hypertensive chronic kidney disease with stage 1 through stage 4 chronic kidney disease, or unspecified chronic kidney disease; N18.9 Chronic kidney disease, unspecified; K21.9 Gastro-esophageal reflux disease without esophagitis; R16.0 Hepatomegaly, not elsewhere classified; K76.0 Fatty (change of) liver, not elsewhere classified; N20.0 Calculus of kidney; R19.7 Diarrhea, unspecified; E83.42 Hypomagnesemia; D64.89 Other specified anemias; F32.9 Major depressive disorder, single episode, unspecified; F39 Unspecified mood [affective] disorder; F41.9 Anxiety disorder, unspecified; J30.2 Other seasonal allergic rhinitis; Z82.49 Family history of ischemic heart disease and other diseases of the circulatory system; Z83.79 Family history of other diseases of the digestive system; Z91.048 Other nonmedicinal substance allergy status; Z91.81 History of falling
CPT/HCPCS: 36415; 74176; 80048; 80053; 80307; 80320; 80329; 81003; 81015; 82306; 82550; 82553; 82607; 83036; 83605; 83735; 84443; 84484; 85025; 85610; 85730; 93005; 99284; A9270-GY; G0378; G0480; J2060; J3411; J3475

== ENCOUNTER 2018-01-01 11:57 | Emergency (ER) | payer BC, OTHER ==
[2018-01-01] MEDS ORDERED: chlordiazePOXIDE CAP* 25 MG PO ONE (12:16)
[2018-01-01] MEDS ORDERED: Thiamine IV* 100 MG, Folic Acid IV* 1 MG, Multiple Vitamin IV ADULT* 10 ML in NS 0.9% 1... IV ONE (12:21)
--- NOTE | 2018-01-01 12:22 | ED ---
Complex/Multi-Sys Presentation - HPI Summary HPI Summary: Patient presents with multiple injuries after falling last night while intoxicated. He admits he was drinking vodka he tripped and fell. He has right ankle pain and swelling and is unable to bear weight here. Pain is worse with movement or touch. He received some ibuprofen about 3 hours ago prior to arrival at the half-way with minimal at active. He denies numbness tingling or weakness here. He also reports right-sided eye pain and swelling after fall. He believes he struck his face on the ground but is not completely sure. He also has neck pain mostly on the left anterior aspect. Denies numbness tingling or weakness in his upper extremities or lower extremities. He is able to breathe and swallow without difficulty. He is also going through alcohol withdrawal as he has some tremulousness. His blood pressure and heart rate are elevated as well however does difficult to say if this is from alcohol withdrawal or lack of medications as he has not taken any of his meds today and one of his diagnoses is hypertension. He uses [facility]. Harm Will call to reconcile med list. Additionally, patient denies chest pain, shortness of breath, abdominal pain, nausea, vomiting, diarrhea. - History Of Current Complaint Chief Complaint: EDAssaulted Time Seen by Provider: 01/01/18 12:02 Hx Obtained From: Patient, Family/[employer] Surveillance Officer - Male officer - Allergies/Home Medications Allergies/Adverse Reactions: Allergies Allergy/AdvReac Type Severity Reaction Status Date / Time No Known Allergies Allergy Unknown Verified 01/01/18 12:01 Reaction Details hay fever Allergy Intermediate Congestion Uncoded 01/01/18 12:01 Home Medications: Home Medications Chlorthalidone TAB* [Hygroton TAB*] 25 mg PO DAILY 01/01/18 [History Confirmed 01/01/18] Folic Acid TAB* [Folvite TAB*] 1 mg PO DAILY 01/01/18 [History Confirmed ] Gabapentin CAP(*) [Neurontin 300 CAP(*)] 300 mg PO Q6H PRN 01/01/18 [History Confirmed 01/01/18] Nicotine PATCH 21 MG/24 HR* 21 mg TRANSDERM DAILY 01/01/18 [History Confirmed ] Omeprazole CAP* [Prilosec CAP* 20 MG] 40 mg PO DAILY 01/01/18 [History Confirmed 01/01/18] QUEtiapine TAB* [Seroquel 25 MG TAB*] 50 mg PO BEDTIME 01/01/18 [History Confirmed 01/01/18] Sucralfate TAB* [Carafate*] 1 gm PO TID AC 01/01/18 [History Confirmed 01/01/18] Thiamine TAB* [Vitamin B-1 TAB*] 100 mg PO DAILY 01/01/18 [History Confirmed ] amLODIPine TAB* [Norvasc 5 mg TAB*] 5 mg PO DAILY 01/01/18 [History Confirmed ] buPROPion SR TAB* [Wellbutrin SR TAB*] 100 mg PO QAM 01/01/18 [History Confirmed 01/01/18] cloNIDine TAB* [Catapres 0.1 MG TAB*] 0.1 mg PO Q6H PRN 01/01/18 [History Confirmed 01/01/18] PMH/Surg Hx/FS Hx/Imm Hx Previously Healthy: Yes Endocrine/Hematology History: Denies: Hx Anticoagulant Therapy, Hx Blood Disorders, Hx Blood Transfusions, Hx Bone Marrow Disease, Hx Diabetes, Hx Thyroid Disease Cardiovascular History: Denies: Hx Aneurysm, Hx Angina, Hx Angioplasty, Hx Hypertension, Hx Pacemaker /ICD Respiratory History: Denies: Hx Asthma, Hx Bronchopulmonary Dysplasia, Hx Chronic Bronchitis, Hx Chronic Obstructive Pulmonary Disease (COPD) GI History: Reports: Hx Gastroesophageal Reflux Disease Denies: Hx Ulcer History: Denies: Hx Benign Prostatic Hyperplasia Sensory History: Denies: Hx Contacts or Glasses, Hx Hearing Aid Opthamlomology History: Denies: Hx Contacts or Glasses Neurological History: Reports: Other Neuro Impairments/Disorders - SYNCOPE / CONCUSSION Psychiatric History: Reports: Hx Substance Abuse Denies: Hx Panic Disorder - Surgical History Surgery Procedure, Year, and Place: LEFT HAND 2003 Infectious Disease History: No Infectious Disease History: Denies: Hx Clostridium Difficile, Hx Hepatitis, Hx Human Immunodeficiency Virus (HIV), Hx of Known/Suspected MRSA, Hx Shingles, Hx Tuberculosis, Traveled Outside the [place] in Last 30 Days - Family History Known Family History: Positive: Hypertension, Other - pancreatic disease - Social History Lives: Dormitory/Roommates - currently in half-way Alcohol Use: Daily Alcohol Amount: 3 pints of vodka daily Hx Substance Use: No Substance Use Type: Reports: None Hx Tobacco Use: Yes Smoking Status (MU): Never Smoked Tobacco Type: Smokeless Tobacco Review of Systems Constitutional: Negative Negative: Skin Diaphoresis Eyes: Other - Rt eye swelling Negative: Photophobia, Blurred Vision, Diplopia ENT: Negative Negative: Epistaxis, Dental Pain Cardiovascular: Negative Respiratory: Negative Gastrointestinal: Negative Genitourinary: Negative Positive: Arthralgia, Myalgia, Decreased ROM, Edema Positive: Bruising Neurological: Negative Psychological: Normal All Other Systems Reviewed And Are Negative: Yes Physical Exam Triage Information Reviewed: Yes Vital Signs On Initial Exam: Initial Vitals Temp Pulse Resp BP Pulse Ox 98.7 F 102 18 144/110 98 01/01/18 11:57 01/01/18 11:57 01/01/18 11:57 01/01/18 11:57 01/01/18 11:57 Vital Signs Reviewed: Yes Appearance: Positive: Well-Nourished, Pain Distress Skin: Positive: Warm, Skin Color Reflects Adequate Perfusion, Dry - no sweating ; No skin breakdown over Rt ankle Head/Face: Positive: Other - Rt periorabital tissue w/ edema and bruising - no deformity otherwise, no crepitus, no battlesign, no step off Eyes: Positive: Normal, EOMI, ELOY, Conjunctiva Clear ENT: Positive: Normal ENT inspection, Hearing grossly normal, Pharynx normal Dental: Negative: Dental Fracture @ Neck: Positive: Supple, Tenderness @ - anterior neck mm Respiratory/Lung Sounds: Positive: Breath Sounds Present Cardiovascular: Positive: Pulses are Symmetrical in both Upper and Lower Extremities Abdomen Description: Positive: Nontender, No Organomegaly, Soft Musculoskeletal: Positive: Strength/ROM Intact - UE's and LE's other than Rt ankle and pain w/ neck palpation, Limited @ - Rt ankle d/t pain and swelling, Pain @ - Rt ankle TTP B/L malleoli Neurological: Positive: Sensory/Motor Intact, Alert, Oriented to Person Place, Time, CN Intact II-III, Reflexes Intact, Other - mild tremulousness Psychiatric: Positive: Normal Procedures - Splinting Right Lower Extremity Location: Rt LE Hand-Made Type: fiberglass Splint: posterior walking - + "U" Pre-Proc Neuro Vasc Exam: normal Post-Proc Neuro Vasc Exam: normal Diagnostics - Vital Signs Vital Signs Temp Pulse Resp BP Pulse Ox 06/15/18 11:57 98.7 F 102 18 144/110 98 - Laboratory Result Diagrams: 01/01/18 12:54 01/01/18 12:54 Lab Statement: Any lab studies that have been ordered have been reviewed, and results considered in the medical decision making process. Re-Evaluation - Re-Evaluation First Eval Change: Improved - HR improved- BP remains elevated. Attained pt's BP meds from [facility] - ordered clonidine and norvasc. Will refrain from diuretuc chlorthalidone as pt is most likely dehydrated from drinking ETOH. Banana bag was ordered and librium for signs of withdrawal. Pt has been resting comfortably, tremor resolved Complex Multi-Symp Course/Dx Course Of Treatment: CT brain, maxilofacial and cervical spine are w/o acute findings. Rt Ankle XR: "Rodriguez type B fracture of the lateral malleolus. The ankle mortise remains congruent.". Pt presents w/ multiple injuries/area of pain after falling while intoxicated last night. He is found to have a right ankle fracture which was splinted today. He will follow-up with ortho through half-way or on his own pending how much time he needs to spend there. He was also found to have early signs of alcohol withdrawal and so Librium was provided here. He has remained calm and without symptoms since. His blood pressure remains elevated (denies CP, RESTREPO, change in vision, SOB) and so 2 of his 3 antihypertensives were provided while here in the ED as he missed his doses this morning. BP improved prior to d/c. He may continue his medications upon return to the half-way. Reconciled med list provided for male officer upon discharge. Review danger signs and symptoms of when to return to the emergency department. - Diagnoses Provider Diagnoses: Fall, Periorbital hematoma of right eye, Closed fracture of distal end of right fibula, EtOH dependence Discharge - Sign-Out/Discharge Documenting (check all that apply): Discharge/Admit/Transfer - Discharge Plan Condition: Stable Disposition: HOME Patient Education Materials: Ankle Fracture (ED), Crutch Instructions (ED), Splint Care (ED), Alcohol Withdrawal (ED), Facial Contusion (ED) Forms: *Work Release Referrals: Belkis Santa MD [Medical Doctor] - No Primary Care Phys,NOPCP [Primary Care Provider] - [facility] [Outside] Additional Instructions: You appear to have sustained a right ankle fracture. This was splinted today. Do not bear weight on this leg. Usually crutches as directed - see education if he needed additional guidance. REST, ICE, ELEVATE AND KEEP SPLINT CLEAN, DRY AND IN PLACE UNTIL SEEN BY ORTHOPEDICS. Call orthopedics today to schedule follow-up You may take ibuprofen alternating with acetaminophen as needed for pain *If you develop numbness, tingling, weakness, swelling or skin discoloration, loosen ANYA wrap and elevate arm for 20 minutes. If symptoms persist, return to ED For your facial contusion, you may apply ice and take ibuprofen with food for pain/swelling. For alcohol dependence, follow-up with your medical staff at the half-way as soon as you return. Your reconciled medication list has been provided for you today - please show this and meds received here to medical staff so they may continue to provide you with necessary medications as well as monitor you for sign/ symptoms of further alcohol withdrawal. If you are worse despite intervention there, return to ED. You may also inquire about counseling for cessation through medical services at the half-way. If you develop suicidal or homicidal ideations, contact your medical staff at the half-way immediately. - Billing Disposition and Condition Condition: STABLE Disposition: Home
[2018-01-01 13:03] LABS: Hematocrit 38 % (42-52); Hemoglobin 12.9 g/dl (14.0-18.0); Mean Corpuscular HGB Conc 34 g/dl (31-36); Mean Corpuscular Hemoglobin 30 pg (27-31); Mean Corpuscular Volume 87 fL (80-94); Mean Platelet Volume 6.2 um3 (7.4-10.4); Platelet Count 193 10^3/ul (150-450); Red Blood Count 4.37 10^6/ul (4.00-5.40); Red Cell Distribution Width 14 % (10.5-15); White Blood Count 7.7 10^3/ul (3.5-10.8)
--- NOTE | 2018-01-01 13:03 | RAD ---
HISTORY: facial injury - fall while intoxicated COMPARISONS: September 30, 2015 TECHNIQUE: Multiple contiguous axial CT scans were obtained of the head without intravenous contrast. FINDINGS: HEMORRHAGE/INFARCT: There is no hemorrhage or acute infarct. MASSES/SHIFT: There is no mass or shift. EXTRA-AXIAL SPACES: There are no extra-axial fluid collections. SULCI AND VENTRICLES: The sulci and ventricles are normal in size and position for the patient's stated age. CEREBRUM: There are no focal parenchymal abnormalities. BRAINSTEM: There are no focal parenchymal abnormalities. CEREBELLUM: There are no focal parenchymal abnormalities. VESSELS: The vessels are grossly normal. PARANASAL SINUSES: The paranasal sinuses are clear. ORBITS: The orbits are unremarkable. BONES AND SOFT TISSUE: No bone or soft tissue abnormalities are noted. OTHER: None IMPRESSION: NO ACUTE INTRACRANIAL PATHOLOGY.
--- NOTE | 2018-01-01 13:05 | RAD ---
HISTORY: fall while intoxicated - cervical pain COMPARISONS: MRI dated November 08, 2014 TECHNIQUE: Multiple contiguous axial CT scans were obtained of the cervical spine without intravenous contrast, with coronal and sagittal multiplanar reformations. FINDINGS: BRAIN: The visualized brain is unremarkable CENTRAL CANAL: Evaluation of the central canal is limited on CT technique, however there is no obvious canalicular mass or epidural hemorrhage. ALIGNMENT: There is straightening of the normal cervical lordosis. VERTEBRAL BODIES: There is anterolateral marginal osteophyte formation at C5-C6. JOINTS: There is no subluxation or dislocation MUSCULATURE: Unremarkable INTERVERTEBRAL DISCS: There is diffuse loss of intervertebral disc height. AXIAL IMAGES: On axial images, there is no osseous neural foraminal narrowing or central canal stenosis. SOFT TISSUES: The visualized soft tissues of the neck are unremarkable. The prevertebral fat stripe is preserved. OTHER: None. IMPRESSION: 1. MILD DEGENERATIVE DISC DISEASE. 2. NO ACUTE OSSEOUS INJURY TO THE CERVICAL SPINE.
--- NOTE | 2018-01-01 13:07 | RAD ---
HISTORY: fall w/ Rt eye swelling COMPARISONS: None TECHNIQUE: Multiple contiguous axial CT scans were obtained of the face without intravenous contrast, with coronal and sagittal multiplanar reformations. FINDINGS: BONES: There is no displaced fracture or dislocation. The orbital rim is intact. The zygomatic arch is intact. The pterygoid plates are intact. ORBITS: The globes are round. The optic nerves are symmetric. The extraocular musculature is normal. There is no post septal or intraconal inflammatory change. There is no retrobulbar hematoma. PARANASAL SINUSES: The nasal septum is slightly deviated to the left. The thickening of ethmoid air cells and maxillary sinuses. BRAIN AND SOFT TISSUE: There is prepatellar soft tissue swelling of the right. OTHER: There is carious disease. IMPRESSION: 1. SOFT TISSUE SWELLING. 2. CARIOUS DISEASE. 3. NO FACIAL FRACTURE.
--- NOTE | 2018-01-01 13:08 | RAD ---
Indication: RIGHT ankle swelling following potential rolling injury. Previous fractures and sprains. Comparison: No relevant prior exams available on the [facility] for comparison. Technique: AP, mortise, and lateral views RIGHT ankle. Report: Nondisplaced oblique coronal fracture through the distal metaphysis of the fibula terminating inferiorly at the level of the ankle mortise. No additional acute fracture evident. Normal articular alignment. Small chronic appearing ossicle along the expected course of the anterior talofibular ligament favoring remote ligament injury. Severe soft tissue swelling over the lateral malleolus. IMPRESSION: Rodriguez type B fracture of the lateral malleolus. The ankle mortise remains congruent.
[2018-01-01] MEDS ORDERED: cloNIDine TAB* 0.1 MG PO ONE (13:20)
[2018-01-01] MEDS ORDERED: amLODIPine TAB* 5 MG PO ONE (13:21)
[2018-01-01 13:25] LABS: EGFR Non-African American 57.7 (>60)
[2018-01-01] MEDS ORDERED: Ibuprofen TAB* 800 MG PO ONE (14:02)
[2018-01-01 14:50] LABS: INR 0.89 (0.77-1.02)
[2018-01-01 15:54] VITALS: BP 139/74
== END 2018-01-01 15:52 | disposition home or self-care (01) ==
LOC: ED 11:57
DX: S82.64XA Nondisplaced fracture of lateral malleolus of right fibula, initial encounter for closed fracture (principal); S05.11XA Contusion of eyeball and orbital tissues, right eye, initial encounter; W01.0XXA Fall on same level from slipping, tripping and stumbling without subsequent striking against object, initial encounter; Y92.9 Unspecified place or not applicable; F10.20 Alcohol dependence, uncomplicated
CPT/HCPCS: 36415; 70450; 70486; 72125; 80053; 85027; 85610; 96365; 99283; A9270-GY; J3411